=== PATIENT | male | born 1950 | race Caucasian/White ===

== ENCOUNTER 2017-05-01 10:14 | Emergency (ER) | payer OTHER, MEDICAID ==
[~2017-05-01] VITALS: Ht 162.6 cm; Wt 95.0 kg
[~2017-05-01 10:14] MED LIST: ASPI1TAB91 PO; BUME1TAB28 PO; FURO1TAB60 PO; LANTUS2P SQ; LIPI40TA PO; LISI-519 PO; METO25TA3 PO; PHEN1LIQ60 PO
[2017-05-01 10:17] VITALS: BP 118/84; PULSE 80; RESP 16; TEMP 98.2; O2SAT 94
[2017-05-01] MEDS ORDERED: BUME2TAB PO (10:28)
--- NOTE | 2017-05-01 10:51 | PD ---
HPI Chief Complaint: Pain: Acute or Chronic Time Seen by Provider: 10:45 Travel History International Travel<30 days: No Contact w/Intl Traveler<30days: No Traveled to known affect area: No History of Present Illness HPI 66 YO M with PMH of arrhythmia S/P defibrillator placement, CAD S/P CABG 3, DM , HTN presents to the ED for evaluation 24-hour history of right ankle pain. Onset upon awaking yesterday. Worsened by range of motion. Patient can identify no acute injury or overuse. He has been ambulatory on the ankle. He does endorse distant ankle sprain. No treatment attempted at home. He has never had a diabetic foot check. PFSH Past Medical History ADHD: Yes Cardiovascular Problems: Yes (PATIENT WITH DEFIBRILLATOR) High Cholesterol: Yes Diabetes: Yes Patient Takes Glucophage: No Hypertension: Yes Past Surgical History Abdominal Surgery: Yes (metal post puntured abdomen part of bowel removed) Coronary Artery Bypass Graft: Yes (x3 ) Coronary Stent: Yes Pacemaker: Yes Social History Alcohol Use: No Tobacco Use: No Substance Use: No Allergies-Medications (Allergen,Severity, Reaction): Coded Allergies: No Known Allergies (Unverified , 05/01/17) Reported Meds & Prescriptions Reported Meds & Active Scripts Active Tylenol (Acetaminophen) 325 Mg Tab 650 Mg PO Q6H 5 Days Lasix (Furosemide) 40 Mg Tab 40 Mg PO DAILY Reported Bumetanide 2 Mg Tab 2 Mg PO BID Lantus Inj (Insulin Glargine) 1,000 Unit/10 Ml Vial 10 Units SQ 2-3 TIMES A DAY Aspirin Adult Low Strength (Aspirin) 81 Mg Tabdr 81 Mg PO DAILY Metoprolol Tartrate 25 Mg Tab 25 Mg PO BID Lisinopril 5 Mg Tab 5 Mg PO DAILY Lipitor (Atorvastatin Calcium) 40 Mg Tab 40 Mg PO DAILY Review of Systems Except as stated in HPI: all other systems reviewed are Neg Physical Exam Narrative GENERAL: Well-nourished, well-developed male in no acute distress. SKIN: Focused skin assessment warm/dry. HEAD: Normocephalic. EYES: No scleral icterus. No injection or drainage. NECK: Supple, trachea midline. No JVD or lymphadenopathy. CARDIOVASCULAR: Regular rate and rhythm without murmurs, gallops, or rubs. RESPIRATORY: Breath sounds equal bilaterally. No accessory muscle use. GASTROINTESTINAL: Abdomen soft, non-tender, nondistended. MUSCULOSKELETAL: No cyanosis, or edema. Focused right lower extremity exam: Mild edema. No erythema or ecchymosis. 2+ DP pulse. Squeeze test negative. Tender to palpation of the bilateral malleolus. No base of the fifth or navicular tenderness. Pain elicited with flexion and extension of the ankle. Patient is able to wiggle the toes. Sensation intact to light touch distally. Cap refill less than 2 seconds. BACK: Nontender without obvious deformity. No CVA tenderness. Data Data Last Documented VS Vital Signs Date Time Temp Pulse Resp B/P Pulse Ox O2 Delivery O2 Flow Rate FiO2 05/01/17 10:17 98.2 80 16 118/84 94 Orders Ankle, Complete ([id number]) (05/01/17 10:40) ^ Nick Bandage (05/01/17 11:26) MDM Medical Decision Making Medical Screen Exam Complete: Yes Emergency Medical Condition: Yes Differential Diagnosis Osteoarthritis versus sprain versus fracture versus dislocation versus osteomyelitis versus diabetic foot pain versus other Narrative Course 66 YO M with PMH of arrhythmia S/P defibrillator placement, CAD S/P CABG 3, DM , HTN presents to the ED for evaluation 24-hour history of right ankle pain. Onset upon awaking yesterday. Worsened by range of motion. Patient can identify no acute injury or overuse. He has been ambulatory on the ankle. He' s never had a diabetic foot check. Vitals reviewed. Physical exam reveals mild edema and tenderness to the bilateral malleolus but is otherwise unremarkable. X-ray reveals no bony injury per radiology read. I suspect this is related to osteoarthritis. Patient was instructed to rest, ice, compress, elevate the extremity. He is provided a prescription for short course of Tylenol as NSAIDs are contraindicated due to many interactions with his current medications. 4 inch Nick wrap was applied in the ED. He is instructed to take the medication as prescribed, treat symptomatically, follow-up with the assessment coordinator for complete foot checked. He indicated understanding of instructions and is agreeable to a care plan. He is stable and discharged home. Diagnosis Primary Impression: Right ankle pain Qualified Code: M25.571 - Acute right ankle pain Referrals: Associate [employer] Integrity [employer] Patient Instructions: Ankle Exercises (GEN), General Instructions, Osteoarthritis (ED) Additional Instructions: Rest, ice, elevate the extremity. Apply ice no longer than 10-15 minutes per hour a few times a day. Tylenol up to 4 x's a day to reduce pain and swelling Return to normal, gentle activity as tolerated. No running, jumping activities for the next few weeks. Follow up with assessment coordinator or the primary care provider. Return to the ED for any urgent or emergent medical condition. Med/Other Pt SpecificInfo: Prescription(s) given Scripts Acetaminophen (Tylenol)325 Mg [id number] Mg PO Q6H 5 Days Ref 0 Prov:Gwendolyn Reyes MD 05/01/17 Disposition: 01 DISCHARGE HOME Condition: Stable Darlyn Serrato May 01, 2017 10:51
--- NOTE | 2017-05-01 11:24 | RADRPT ---
EXAM DATE/TIME: 05/01/2017 11:05 [facility] COMPARISON: No previous studies available for comparison. INDICATIONS : Right ankle pain. No known injury. MEDICAL HISTORY : None. SURGICAL HISTORY : None. ENCOUNTER: Initial ACUITY: 1 day PAIN SCORE: 10/10 LOCATION: Right medial ankle FINDINGS: Moderate soft tissue swelling is seen over both the medial and lateral malleolus. Alignment is anato italo. Fracture is not appreciated. CONCLUSION: Soft tissue swelling without fracture. Celio Aragon MD FACR on May 01, 2017 at 11:21 Board Certified Radiologist. This report was verified electronically.
[2017-05-01] MEDS ORDERED: TYLE325T PO (11:25)
== END 2017-05-01 11:44 | disposition home or self-care (01) ==
LOC: NEPD 10:14
DX: M25.571 Pain in right ankle and joints of right foot (principal); I49.9 Cardiac arrhythmia, unspecified; I25.10 Atherosclerotic heart disease of native coronary artery without angina pectoris; E11.9 Type 2 diabetes mellitus without complications; I10 Essential (primary) hypertension; E78.00 Pure hypercholesterolemia, unspecified; Z79.4 Long term (current) use of insulin; Z79.899 Other long term (current) drug therapy; Z79.82 Long term (current) use of aspirin
CPT/HCPCS: 73610; 99283

== ENCOUNTER 2017-05-16 09:40 | Emergency (ER) | payer OTHER, MEDICAID ==
[~2017-05-16] VITALS: Ht 162.6 cm; Wt 95.5 kg
[~2017-05-16 09:40] MED LIST changes: -BUME1TAB28 PO; +BUME2TAB PO; -PHEN1LIQ60 PO; +TYLE325T PO
[2017-05-16 09:43] VITALS: BP 146/77; PULSE 65; RESP 24; TEMP 97.8; O2SAT 98
--- NOTE | 2017-05-16 10:27 | PD ---
HPI Chief Complaint: Abdominal Pain Time Seen by Provider: 10:24 Travel History International Travel<30 days: No Contact w/Intl Traveler<30days: No Traveled to known affect area: No History of Present Illness HPI 66-year-old male with history of diabetes, hypertension, CAD status post CABG, previous intestinal surgery secondary to an accident, presents to the ER today because of one day history of abdominal pain and nausea with one episode of vomiting. He states his symptoms started at 4 AM. He denies any diarrhea, fevers, or any other symptoms. He currently states his pain is a 10 out of 10. He does not know any exacerbating or alleviating factors. Modifying Factors: None Associated Signs & Symptoms: Abdominal pain, nausea and vomiting Risk Factors: None PFSH Past Medical History Hx Anticoagulant Therapy: No ADHD: Yes Cardiovascular Problems: Yes (pacer) High Cholesterol: Yes Chemotherapy: No Cerebrovascular Accident: No Diabetes: Yes Patient Takes Glucophage: No Hypertension: Yes Respiratory: No Past Surgical History Abdominal Surgery: Yes (metal post puntured abdomen part of bowel removed) Coronary Artery Bypass Graft: Yes (x3 ) Coronary Stent: Yes Pacemaker: Yes Social History Alcohol Use: No Tobacco Use: No Substance Use: No Allergies-Medications (Allergen,Severity, Reaction): Coded Allergies: No Known Allergies (Unverified , 05/01/17) Reported Meds & Prescriptions Reported Meds & Active Scripts Active Tylenol (Acetaminophen) 325 Mg Tab 650 Mg PO Q6H 5 Days Lasix (Furosemide) 40 Mg Tab 40 Mg PO DAILY Reported Bumetanide 2 Mg Tab 2 Mg PO BID Lantus Inj (Insulin Glargine) 1,000 Unit/10 Ml Vial 10 Units SQ 2-3 TIMES A DAY Aspirin Adult Low Strength (Aspirin) 81 Mg Tabdr 81 Mg PO DAILY Metoprolol Tartrate 25 Mg Tab 25 Mg PO BID Lisinopril 5 Mg Tab 5 Mg PO DAILY Lipitor (Atorvastatin Calcium) 40 Mg Tab 40 Mg PO DAILY Review of Systems Except as stated in HPI: all other systems reviewed are Neg Physical Exam Narrative GENERAL: Well-developed elderly male patient currently mild distress. Awake and oriented 3. SKIN: Focused skin assessment warm/dry. HEAD: Atraumatic. Normocephalic. EYES: Pupils equal and round. No scleral icterus. No injection or drainage. ENT: No nasal bleeding or discharge. Mucous membranes pink and moist. NECK: Trachea midline. No JVD. CARDIOVASCULAR: Regular rate and rhythm. No murmur appreciated. RESPIRATORY: No accessory muscle use. Clear to auscultation. Breath sounds equal bilaterally. GASTROINTESTINAL: Abdomen soft, mid abdominal tenderness without guarding or rebound, nondistended. Hepatic and splenic margins not palpable. MUSCULOSKELETAL: No obvious deformities. No clubbing. No cyanosis. No edema. NEUROLOGICAL: Awake and alert. No obvious cranial nerve deficits. Motor grossly within normal limits. Normal speech. PSYCHIATRIC: Appropriate mood and affect; insight and judgment normal. Data Data Last Documented VS Vital Signs Date Time Temp Pulse Resp B/P Pulse Ox O2 Delivery O2 Flow Rate FiO2 05/16/17 10:43 21 95 Nasal Cannula 2 05/16/17 09:43 97.8 65 146/77 Orders Complete Blood Count With Diff (05/16/17 10:19) Comprehensive Metabolic Panel (05/16/17 10:19) Lipase (05/16/17 10:19) Urinalysis - C+S If Indicated (05/16/17 10:19) Iv Access Insert/Monitor (05/16/17 10:19) Ecg Monitoring (05/16/17 10:19) Oximetry (05/16/17 10:19) Ondansetron Inj (Zofran Inj) (05/16/17 10:30) Sodium Chloride 0.9% Flush (Ns Flush) (05/16/17 10:30) Electrocardiogram (05/16/17 10:19) Hydromorphone Pf Inj (Dilaudid Pf Inj) (05/16/17 10:30) Ct Abd/Pel W Iv Contrast(Rout) (05/16/17 10:24) Iohexol 350 Inj (Omnipaque 350 Inj) (05/16/17 12:46) Labs Laboratory Tests Test 05/16/17 10:30 White Blood Count 13.2 TH/MM3 Red Blood Count 5.85 MIL/MM3 Hemoglobin 16.4 GM/DL Hematocrit 50.0 % Mean Corpuscular Volume 85.5 FL Mean Corpuscular Hemoglobin 28.0 PG Mean Corpuscular Hemoglobin 32.8 % Concent Red Cell Distribution Width 14.3 % Platelet Count 165 TH/MM3 Mean Platelet Volume 10.6 FL Neutrophils (%) (Auto) 88.2 % Lymphocytes (%) (Auto) 8.4 % Monocytes (%) (Auto) 3.0 % Eosinophils (%) (Auto) 0.1 % Basophils (%) (Auto) 0.3 % Neutrophils # (Auto) 11.6 TH/MM3 Lymphocytes # (Auto) 1.1 TH/MM3 Monocytes # (Auto) 0.4 TH/MM3 Eosinophils # (Auto) 0.0 TH/MM3 Basophils # (Auto) 0.0 TH/MM3 CBC Comment DIFF FINAL Differential Comment Sodium Level 131 MEQ/L Potassium Level 4.3 MEQ/L Chloride Level 95 MEQ/L Carbon Dioxide Level 28.6 MEQ/L Anion Gap 7 MEQ/L Blood Urea Nitrogen 23 MG/DL Creatinine 1.40 MG/DL Estimat Glomerular Filtration 51 ML/MIN Rate Random Glucose 169 MG/DL Calcium Level 10.1 MG/DL Total Bilirubin 0.6 MG/DL Aspartate Amino Transf 23 U/L (AST/SGOT) Alanine Aminotransferase 29 U/L (ALT/SGPT) Alkaline Phosphatase 88 U/L Total Protein 9.4 GM/DL Albumin 4.6 GM/DL Lipase 174 U/L [facility] Medical Decision Making Medical Screen Exam Complete: Yes Emergency Medical Condition: Yes Medical Record Reviewed: Yes Interpretation(s) Laboratory Tests Test 05/16/17 10:30 White Blood Count 13.2 TH/MM3 (4.0-11.0) Neutrophils (%) (Auto) 88.2 % (16.0-70.0) Lymphocytes (%) (Auto) 8.4 % (9.0-44.0) Neutrophils # (Auto) 11.6 TH/MM3 (1.8-7.7) Sodium Level 131 MEQ/L (136-145) Chloride Level 95 MEQ/L (98-107) Blood Urea Nitrogen 23 MG/DL (7-18) Creatinine 1.40 MG/DL (0.60-1.30) Estimat Glomerular Filtration 51 ML/MIN (>89) Rate Random Glucose 169 MG/DL (74-106) Total Protein 9.4 GM/DL (6.4-8.2) Last 24 hours Impressions Abdomen/Pelvis CT 05/16/17 1024 Signed Impressions: Service Date/Time: Tuesday, May 16, 2017 12:29 - CONCLUSION: Fluid-filled small bowel with air-fluid levels which may or present a mild ileus or enteritis. Increased fat content in the liver. Cardiomegaly No other significant abnormality. Altaf Liao MD Differential Diagnosis Abdominal pain, nausea and vomitinggastroenteritis versus gastritis versus obstruction versus other acute intra-abdominal process Narrative Course Lab work shows leukocytosis and CAT scan was ordered for further evaluation. It shows some signs of mild ileus and enteritis but was otherwise unremarkable. Patient was given IV nausea medication in the ER and on reevaluation at 1:20 PM, he is feeling much improved and has had no further vomiting in the ER. At this point, abdomen is fairly soft and nontender, and I do not think that he has an acute abdomen and this case. My plan would be to release him with symptomatic relief or nausea and vomiting and have him follow-up with primary care physician. He should return for any worsening in symptoms as necessary. The plan has been discussed with him and he states understanding. Diagnosis Primary Impression: Enteritis Med/Other Pt SpecificInfo: Prescription(s) given Scripts Dicyclomine (Bentyl)10 Mg Cap10 Mg PO TID PRN (Bowel Management) #15 CAP Ref 0 Prov:Catherine Osuna MD 05/16/17 Ondansetron Odt (Zofran Odt)4 Mg Tab4 Mg SL Q6HR PRN (Nausea/Vomiting) #7 TAB Ref 0 Prov:Catherine Osuna MD 05/16/17 Disposition: 01 DISCHARGE HOME Condition: Stable Catherine Osuna MD May 16, 2017 10:27
[2017-05-16] MEDS ORDERED: SODIUM CHLORIDE 0.9% FLUSH 10 ML FLUSH IV FLUSH PRN (10:30)
[2017-05-16] MEDS ORDERED: HYDROmorphone HCL PF 1 MG/ML VIAL IV PUSH ONE (10:30)
[2017-05-16] MEDS ORDERED: ONDANSETRON HCL 4 MG/2 ML VIAL IVP ONE (10:30)
[2017-05-16 10:41] VITALS: RESP 19; O2SAT 95
[2017-05-16 10:43] VITALS: RESP 21; O2SAT 95
[2017-05-16 11:09] LABS: AUTOMATED NEUTROPHIL # 11.6 TH/MM3 (1.8-7.7); BASOPHIL % 0.3 % (0.0-2.0); EOSINOPHIL % 0.1 % (0.0-4.0); HEMO FLAGS DIFF FINAL; LYMPH % 8.4 % (9.0-44.0); LYMPHOCYTE # 1.1 TH/MM3 (1.0-4.8); MEAN CELL VOLUME 85.5 FL (80.0-100.0); MEAN CORPUSCULAR HGB CONC 32.8 % (32.0-36.0); NEUT % 88.2 % (16.0-70.0); PLATELET COUNT 165 TH/MM3 (150-450); RED BLOOD COUNT 5.85 MIL/MM3 (4.50-5.90); RED CELL DISTRIBUTION WIDTH 14.3 % (11.6-17.2); WHITE BLOOD COUNT 13.2 TH/MM3 (4.0-11.0)
[2017-05-16 11:29] LABS: ANION GAP 7 MEQ/L (5-15); BICARBONATE 28.6 MEQ/L (21.0-32.0); BLOOD UREA NITROGEN 23 MG/DL (7-18); CHLORIDE 95 MEQ/L (98-107); GLOMERULAR FILTRATION RATE 51 ML/MIN (>89); POTASSIUM 4.3 MEQ/L (3.5-5.1); SODIUM (NA) 131 MEQ/L (136-145)
[2017-05-16 11:31] LABS: ALT (GPT) 29 U/L (12-78); AST (GOT) 23 U/L (15-37)
[2017-05-16 11:33] LABS: ALKALINE PHOSPHATASE 88 U/L (45-117); TOTAL BILIRUBIN ADULT 0.6 MG/DL (0.2-1.0)
[2017-05-16] MEDS ORDERED: IOHEXOL 350 MG/ML 10 ML VIAL (for RAD DIAG) IV ONE (12:46)
--- NOTE | 2017-05-16 13:11 | RADRPT ---
EXAM DATE/TIME: 05/16/2017 12:29 [facility] COMPARISON: No previous studies available for comparison. INDICATIONS : Abdominal pain, nausea, vomiting, constipation. IV CONTRAST: 97 cc Omnipaque 350 (iohexol) IV ORAL CONTRAST: No oral contrast ingested. RADIATION DOSE: 16.54 CTDIvol (mGy) MEDICAL HISTORY : Cardiovascular disease. Diabetes mellitus type 2. Hypertension. SURGICAL HISTORY : CABG ENCOUNTER: Initial ACUITY: 1 day PAIN SCALE: 4/10 LOCATION: Bilateral lower quadrant TECHNIQUE: Volumetric scanning of the abdomen and pelvis was performed. Using automated exposure control and ad justment of the mA and/or kV according to patient size, radiation dose was kept as low as reasonably achievable to obtain optimal diagnostic quality images. DICOM format image data is available electro nically for review and comparison. FINDINGS: LOWER LUNGS: The visualized lower lungs are clear. The heart is moderately enlarged. AICD device is noted in place . LIVER: Liver is diffusely hypodense. There no focal lesions or evidence of biliary duct dilatation. No calci fied gallstones. SPLEEN: Normal size without lesion. PANCREAS: Within normal limits. KIDNEYS: Normal in size and shape. There is no mass, stone or hydronephrosis. 12 mm cyst is identified in the upper pole of the left kidney. ADRENAL GLANDS: Within normal limits. VASCULAR: There is no aortic aneurysm. BOWEL/MESENTERY: Increased fluid accumulation with air-fluid levels are seen throughout the small intestinal tract. Th ere is no evidence of pathologic distention. Stool and air present in the colon which is not distende d. There are no extraintestinal fluid collections or evidence of free air. ABDOMINAL WALL: Within normal limits. RETROPERITONEUM: There is no lymphadenopathy. BLADDER: No wall thickening or mass. REPRODUCTIVE: Within normal limits. INGUINAL: There is no lymphadenopathy or hernia. MUSCULOSKELETAL: Within normal limits for patient age. CONCLUSION: Fluid-filled small bowel with air-fluid levels which may or present a mild ileus or enteritis. Increased fat content in the liver. Cardiomegaly No other significant abnormality. Altaf Liao MD on May 16, 2017 at 12:55 Board Certified Radiologist. This report was verified electronically.
[2017-05-16] MEDS ORDERED: DICY10 PO (13:22)
[2017-05-16] MEDS ORDERED: ZOFR4TAB3 SL (13:22)
--- NOTE | 2017-05-17 12:30 | EKG ---
Date Performed: 05/16/2017 Time Performed: 10:27:21 PTAGE: 66 years EKG: ELECTRONIC VENTRICULAR PACEMAKER Compared to prior tracing no significant change ABNORMAL R HYTHM ECG PREVIOUS TRACING : 10/23/2016 14.03 DOCTOR: Nahum Avila Interpretating Date/Time 05/17/2017 12:28:40
== END 2017-05-16 13:58 | disposition home or self-care (01) ==
LOC: NEPC 09:40
DX: K52.9 Noninfective gastroenteritis and colitis, unspecified (principal); E11.9 Type 2 diabetes mellitus without complications; I10 Essential (primary) hypertension; Z79.4 Long term (current) use of insulin; Z79.82 Long term (current) use of aspirin
CPT/HCPCS: 74177; 80053; 83690; 85025; 93005; 96374; 96375; 99285; J1170; J2405; Q9967

== ENCOUNTER 2017-12-18 18:48 | Inpatient (IN) | payer OTHER, MEDICAID, MEDICARE ==
[2017-12-18] VITALS (7 sets, daily range): BP systolic 92–125; BP diastolic 50–71; PULSE 69–149; RESP 16–18; TEMP 97.7–98; O2SAT 95–98
[~2017-12-18] VITALS: Ht 160 cm; Wt 93.7 kg
[~2017-12-18 18:48] MED LIST changes: -ASPI1TAB91 PO; +ASPI81TA16 PO; +DICY10 PO; +ZOFR4TAB3 SL
[2017-12-18] MEDS ORDERED: SODIUM CHLORIDE 0.9% FLUSH 10 ML FLUSH IVF PRN (19:45)
[2017-12-18] MEDS ORDERED: DILTIAZEM HCL 25 MG/5 ML VIAL IV ONE (19:45)
--- NOTE | 2017-12-18 19:47 | PD ---
HPI Chief Complaint: Chest Pain Time Seen by Provider: 19:28 Travel History International Travel<30 days: No Contact w/Intl Traveler<30days: No Traveled to known affect area: No History of Present Illness HPI Patient is a 67-year-old male presenting to the emergency department for evaluation of chest pain. Patient states this started approximately 5 PM this evening. He reports increased heart rate and his blood pressure was high at home. He states his blood pressure is 150/100. He reports the chest pain is on his left anterior chest wall, there is no radiation. He reports mild shortness of breath and cold sweats. He reports his pain as a 5 out of 10, symptom severity is moderate, onset was sudden. There are no alleviating factors, there are no exacerbating factors. Patient denies any recent illness, no fevers, abdominal pain, shortness of breath, back pain, headache. Past medical history significant for hypertension, type 2 diabetes, triple coronary artery bypass graft, pacemaker. PFSH Past Medical History ADHD: Yes Heart Rhythm Problems: Yes High Cholesterol: Yes Diabetes: Yes Hypertension: Yes Immunizations Current: Yes Past Surgical History Abdominal Surgery: Yes (metal post puntured abdomen part of bowel removed) Coronary Artery Bypass Graft: Yes (x3 ) Coronary Stent: Yes Pacemaker: Yes Social History Alcohol Use: No Tobacco Use: No Substance Use: No Allergies-Medications (Allergen,Severity, Reaction): Coded Allergies: No Known Allergies (Unverified Allergy, Unknown, 12/18/17) Reported Meds & Prescriptions Reported Meds & Active Scripts Active Bentyl (Dicyclomine HCl) 10 Mg Cap 10 Mg PO TID PRN Zofran Odt (Ondansetron Odt) 4 Mg Tab 4 Mg SL Q6HR PRN Tylenol (Acetaminophen) 325 Mg Tab 650 Mg PO Q6H 5 Days Lasix (Furosemide) 40 Mg Tab 40 Mg PO DAILY Reported Bumetanide 2 Mg Tab 2 Mg PO BID Lantus Inj (Insulin Glargine) 1,000 Unit/10 Ml Vial 10 Units SQ 2-3 TIMES A DAY Aspirin Adult Low Strength (Aspirin) 81 Mg Tabdr 81 Mg PO DAILY Metoprolol Tartrate 25 Mg Tab 25 Mg PO BID Lisinopril 5 Mg Tab 5 Mg PO DAILY Lipitor (Atorvastatin Calcium) 40 Mg Tab 40 Mg PO DAILY Review of Systems Except as stated in HPI: all other systems reviewed are Neg General / Constitutional: No: Fever HENT: No: Headaches, Lightheadedness Cardiovascular: Positive: Chest Pain or Discomfort, Tachycardia Respiratory: Positive: Shortness of Breath (mild), No: Cough, Wheezing Gastrointestinal: No: Nausea, Abdominal Pain Musculoskeletal: No: Myalgias Neurologic: No: Weakness, Dizziness, Syncope, Focal Abnormalities Physical Exam Narrative GENERAL: Overweight, well-developed, alert male. Presenting in no acute distress. SKIN: Warm and dry. HEAD: Atraumatic. Normocephalic. EYES: Pupils equal and round. No scleral icterus. No injection or drainage. ENT: No nasal bleeding or discharge. Mucous membranes pink and moist. NECK: Trachea midline. No JVD. CARDIOVASCULAR: Tachycardic. RESPIRATORY: No accessory muscle use. Clear to auscultation. Breath sounds equal bilaterally. GASTROINTESTINAL: Abdomen soft, non-tender, nondistended. Hepatic and splenic margins not palpable. MUSCULOSKELETAL: Extremities without clubbing, cyanosis, or edema. No obvious deformities. NEUROLOGICAL: Awake and alert. No obvious cranial nerve deficits. Motor grossly within normal limits. Five out of 5 muscle strength in the arms and legs. Normal speech. PSYCHIATRIC: Appropriate mood and affect; insight and judgment normal. Data Data Last Documented VS Vital Signs Date Time Temp Pulse Resp B/P (MAP) Pulse Ox O2 Delivery O2 Flow Rate FiO2 12/18/17 19:50 98 Room Air 12/18/17 19:50 18 12/18/17 19:36 149 12/18/17 18:51 98.0 Orders Orders Electrocardiogram (12/18/17 19:37) B-Type Natriuretic Peptide (12/18/17 19:37) Ckmb (Isoenzyme) Profile (12/18/17 19:37) Complete Blood Count With Diff (12/18/17 19:37) Comprehensive Metabolic Panel (12/18/17 19:37) Magnesium (Mg) (12/18/17 19:37) Prothrombin Time / Inr (Pt) (12/18/17 19:37) Act Partial Throm Time (Ptt) (12/18/17 19:37) Troponin I (12/18/17 19:37) Lipase (12/18/17 19:37) Chest, Single Ap (12/18/17 19:37) Ecg Monitoring (12/18/17 19:37) Bilateral Bp Monitoring (12/18/17 19:37) Iv Access Insert/Monitor (12/18/17 19:37) Oximetry (12/18/17 19:37) Oxygen Administration (12/18/17 19:37) Sodium Chloride 0.9% Flush (Ns Flush) (12/18/17 19:45) Ct Pulmonary Angiogram (12/18/17 19:37) Diltiazem Inj (Cardizem Inj) (12/18/17 19:45) CKMB (12/18/17 19:45) CKMB% (12/18/17 19:45) Aspirin Chew (Aspirin Chew) (12/18/17 21:00) Nitroglycerin 2% Oint (Nitroglycerin 2% (12/18/17 21:00) Heparin Inj (Heparin Inj) (12/18/17 21:00) Heparin Inj (Heparin Inj) (12/19/17 03:00) Heparin Inj (Heparin Inj) (12/19/17 03:00) Heparin-D5w 25,000 U/250 Ml (Heparin-D5w (12/18/17 21:00) Cbc No Diff, Includes Plts (12/21/17 06:00) Act Partial Throm Time (Ptt) (12/19/17 03:50) Electrocardiogram (12/18/17 ) Admit Order (Ed Use Only) (12/18/17 21:38) Labs Laboratory Tests Test 12/18/17 19:45 White Blood Count 9.4 TH/MM3 Red Blood Count 5.58 MIL/MM3 Hemoglobin 15.9 GM/DL Hematocrit 47.4 % Mean Corpuscular Volume 85.0 FL Mean Corpuscular Hemoglobin 28.5 PG Mean Corpuscular Hemoglobin Concent 33.6 % Red Cell Distribution Width 14.4 % Platelet Count 170 TH/MM3 Mean Platelet Volume 9.1 FL Neutrophils (%) (Auto) 73.3 % Lymphocytes (%) (Auto) 17.0 % Monocytes (%) (Auto) 8.1 % Eosinophils (%) (Auto) 1.0 % Basophils (%) (Auto) 0.6 % Neutrophils # (Auto) 6.9 TH/MM3 Lymphocytes # (Auto) 1.6 TH/MM3 Monocytes # (Auto) 0.8 TH/MM3 Eosinophils # (Auto) 0.1 TH/MM3 Basophils # (Auto) 0.1 TH/MM3 CBC Comment DIFF FINAL Differential Comment Prothrombin Time 10.0 SEC Prothromb Time International Ratio 1.0 RATIO Activated Partial Thromboplast Time 24.7 SEC Blood Urea Nitrogen 22 MG/DL Creatinine 1.31 MG/DL Random Glucose 162 MG/DL Total Protein 8.2 GM/DL Albumin 3.7 GM/DL Calcium Level 8.9 MG/DL Magnesium Level 2.7 MG/DL Alkaline Phosphatase 77 U/L Aspartate Amino Transf (AST/SGOT) 30 U/L Alanine Aminotransferase (ALT/SGPT) 22 U/L Total Bilirubin 0.4 MG/DL Sodium Level 133 MEQ/L Potassium Level 4.4 MEQ/L Chloride Level 97 MEQ/L Carbon Dioxide Level 26.6 MEQ/L Anion Gap 9 MEQ/L Estimat Glomerular Filtration Rate 55 ML/MIN Total Creatine Kinase 223 U/L Creatine Kinase MB 3.7 NG/ML Troponin I 0.66 NG/ML B-Type Natriuretic Peptide 227 PG/ML Lipase 253 U/L MDM Medical Decision Making Medical Screen Exam Complete: Yes Emergency Medical Condition: Yes Medical Record Reviewed: Yes Interpretation(s) Vital Signs Date Time Temp Pulse Resp B/P (MAP) Pulse Ox O2 Delivery O2 Flow Rate FiO2 12/18/17 19:50 98 Room Air 12/18/17 19:50 18 98 Room Air 12/18/17 19:36 149 18 119/62 (81) 97 Room Air 12/18/17 18:51 98.0 72 16 125/71 (89) 95 Room Air Vital Signs Date Time Temp Pulse Resp B/P (MAP) Pulse Ox O2 Delivery O2 Flow Rate FiO2 12/18/17 19:36 149 18 119/62 (81) 97 Room Air 12/18/17 18:51 98.0 72 16 125/71 (89) 95 Room Air Last Impressions Chest X-Ray 12/18/17 193 Signed Impressions: Service Date/Time: Monday, December 18, 2017 19:56 - CONCLUSION: 1. Compensated cardiomegaly. 2. Minimal left perihilar atelectasis/scarring. Lungs are otherwise clear Skyler Wetzel MD Laboratory Tests Test 12/18/17 19:45 White Blood Count 9.4 TH/MM3 Red Blood Count 5.58 MIL/MM3 Hemoglobin 15.9 GM/DL Hematocrit 47.4 % Mean Corpuscular Volume 85.0 FL Mean Corpuscular Hemoglobin 28.5 PG Mean Corpuscular Hemoglobin Concent 33.6 % Red Cell Distribution Width 14.4 % Platelet Count 170 TH/MM3 Mean Platelet Volume 9.1 FL Neutrophils (%) (Auto) 73.3 % Lymphocytes (%) (Auto) 17.0 % Monocytes (%) (Auto) 8.1 % Eosinophils (%) (Auto) 1.0 % Basophils (%) (Auto) 0.6 % Neutrophils # (Auto) 6.9 TH/MM3 Lymphocytes # (Auto) 1.6 TH/MM3 Monocytes # (Auto) 0.8 TH/MM3 Eosinophils # (Auto) 0.1 TH/MM3 Basophils # (Auto) 0.1 TH/MM3 CBC Comment DIFF FINAL Differential Comment Prothrombin Time 10.0 SEC Prothromb Time International Ratio 1.0 RATIO Activated Partial Thromboplast Time 24.7 SEC Blood Urea Nitrogen 22 MG/DL Creatinine 1.31 MG/DL Random Glucose 162 MG/DL Total Protein 8.2 GM/DL Albumin 3.7 GM/DL Calcium Level 8.9 MG/DL Magnesium Level 2.7 MG/DL Alkaline Phosphatase 77 U/L Aspartate Amino Transf (AST/SGOT) 30 U/L Alanine Aminotransferase (ALT/SGPT) 22 U/L Total Bilirubin 0.4 MG/DL Sodium Level 133 MEQ/L Potassium Level 4.4 MEQ/L Chloride Level 97 MEQ/L Carbon Dioxide Level 26.6 MEQ/L Anion Gap 9 MEQ/L Estimat Glomerular Filtration Rate 55 ML/MIN Total Creatine Kinase 223 U/L Troponin I 0.66 NG/ML Lipase 253 U/L Differential Diagnosis ACS versus nstemi versus pulmonary embolism versus metabolic abnormality versus other Narrative Course Patient is a 67-year-old male presenting for evaluation of chest pain. Patient is tachycardic on arrival, he is in no acute distress. IV access established, patient placed on telemetry monitoring continuous pulse oximetry. Initial EKG shows uncertain a regular rhythm with a ventricular rate of 139. Diltiazem 15 mg IV 1 dose ordered. Patient was reassessed, heart rate is in the 80s and he reports feeling much better. Troponin resulted 0.66, aspirin, nitro paste, heparin drip ordered. Chest x-ray shows a density cardiomegaly, minimal left perihilar atelectasis/ scarring, lungs are otherwise clear. CT pulmonary angiogram is negative for pulmonary embolus. Severe coronary calcification status post CABG. CBC is unremarkable Coags are unremarkable Chemistry with BUN and creatinine 22/1.31, magnesium 2.7, BNP 227 Patient will be admitted for NSTEMI. Discussed findings with my attending physician, patient was admitted to the residents under Dr. Sims. Admit orders placed. Patient and spouse were advised on all findings as well as plan of care. Patient is agreeable to stay. He is resting comfortably, he has no complaints of chest pain at this time. His vital signs remain stable. Diagnosis Primary Impression: NSTEMI (non-ST elevated myocardial infarction) Additional Impressions: Elevated brain natriuretic peptide (BNP) level Tachyarrhythmia Admitting Information Admitting Physician Requests: Admit Marybel Leyva Dec 18, 2017 19:47
--- NOTE | 2017-12-18 20:08 | RADRPT ---
EXAM DATE/TIME: 12/18/2017 19:56 [facility] COMPARISON: CHEST SINGLE AP, October 23, 2016, 14:12. INDICATIONS : Chest pain. MEDICAL HISTORY : Cardiovascular disease. Diabetes mellitus type 2. Hypertension. SURGICAL HISTORY : CABG. ENCOUNTER: Initial ACUITY: 1 day PAIN SCORE: 5/10 LOCATION: Bilateral chest FINDINGS: A single view of the chest demonstrates the lungs to be symmetrically aerated without evidence of mas s, infiltrate or effusion. Minimal left perihilar atelectatic changes. Heart size is prominent but ap pears to be well compensated. Left subclavian bipolar pacer/defibrillator is radiographically intact. Intact median sternotomy wires and surgical clips the medial aspect of the left upper hemithorax may represent a JOYA-type graft. CONCLUSION: 1. Compensated cardiomegaly. 2. Minimal left perihilar atelectasis/scarring. Lungs are otherwise clear Skyler Wetzel MD on December 18, 2017 at 20:05 Board Certified Radiologist. This report was verified electronically.
[2017-12-18 20:13] LABS: AUTOMATED NEUTROPHIL # 6.9 TH/MM3 (1.8-7.7); BASOPHIL # 0.1 TH/MM3 (0-0.2); BASOPHIL % 0.6 % (0.0-2.0); EOSINOPHIL # 0.1 TH/MM3 (0-0.4); HEMATOCRIT 47.4 % (39.0-51.0); HEMOGLOBIN 15.9 GM/DL (13.0-17.0); LYMPHOCYTE # 1.6 TH/MM3 (1.0-4.8); MEAN CORPUSCULAR HEMOGLOBIN 28.5 PG (27.0-34.0); MEAN CORPUSCULAR HGB CONC 33.6 % (32.0-36.0); MEAN PLATELET VOLUME 9.1 FL (7.0-11.0); MONO % 8.1 % (0.0-8.0); MONOCYTE # 0.8 TH/MM3 (0-0.9); NEUT % 73.3 % (16.0-70.0); PLATELET COUNT 170 TH/MM3 (150-450); RED BLOOD COUNT 5.58 MIL/MM3 (4.50-5.90); RED CELL DISTRIBUTION WIDTH 14.4 % (11.6-17.2); WHITE BLOOD COUNT 9.4 TH/MM3 (4.0-11.0)
[2017-12-18 20:34] LABS: ALBUMIN 3.7 GM/DL (3.4-5.0); AST (GOT) 30 U/L (15-37); BICARBONATE 26.6 MEQ/L (21.0-32.0); BLOOD UREA NITROGEN 22 MG/DL (7-18); CALCIUM 8.9 MG/DL (8.5-10.1); CHLORIDE 97 MEQ/L (98-107); CREATININE 1.31 MG/DL (0.60-1.30); GLOMERULAR FILTRATION RATE 55 ML/MIN (>89); GLUCOSE,RANDOM 162 MG/DL (74-106); MAGNESIUM 2.7 MG/DL (1.5-2.5); SODIUM (NA) 133 MEQ/L (136-145)
[2017-12-18 20:44] LABS: ALKALINE PHOSPHATASE 77 U/L (45-117); ALT (GPT) 22 U/L (12-78); TOTAL BILIRUBIN ADULT 0.4 MG/DL (0.2-1.0); TOTAL PROTEIN 8.2 GM/DL (6.4-8.2)
[2017-12-18 20:48] LABS: TROPONIN I 0.66 NG/ML (0.02-0.05)
[2017-12-18] MEDS ORDERED: TEMAZEPAM 15 MG CAP PO PRN (21:00)
[2017-12-18] MEDS ORDERED: NITROGLYCERIN 2% OINT 1 GM PACKET TOPICAL ONE (21:00)
[2017-12-18] MEDS ORDERED: HEPARIN SODIUM - IV 10,000 UNITS/10 ML VIAL IV ONE (21:00)
[2017-12-18] MEDS ORDERED: ASPIRIN 81 MG CHEW TAB CHEW ONE (21:00)
[2017-12-18] MEDS: HEPARIN-D5W 25,000 U/250 ML 250 ML IV PRN (21:40)
[2017-12-18] MEDS ORDERED: IOHEXOL 350 MG/ML 10 ML VIAL (for RAD DIAG) IVCONTRAST ONE (22:00)
--- NOTE | 2017-12-18 22:00 | HHI.HP ---
HPI Service Family Medicine Primary Care Physician Unknown Admission Diagnosis NSTEMI Diagnoses: International Travel<30 Days: No Contact w/Intl Traveler<30days: No Known Affected Area: No History of Present Illness 67 y/o M, hx of triple bypass and packemaker placement, DM, CKD, and HTN came in after episode of chest pain and saw that his HR was 126 and BP 150/105 at home. He also had some sweating at this time. The chest pain was over the left side of his chest and persisted for about 2 hours until he got medicine in the ED. He took his metoprolol and lisinopril at home which helped his HR and BP to come down, but he continue to have the chest pain. He denies any N/V during this time. He denies palpitations Pt denies any CP with activity recently. Right now he has no pain at all. He says he has chills in his feet. He had similar chest pain 5 years ago, but it was stronger. This led to his open heart surgery. He sees a grout machine operator, of [facility]. He saw him last 6 months ago, and there were no problems. No medications were changed at that time. Review of Systems Constitutional: DENIES: Fever, Weight gain Endocrine: DENIES: Polyuria, Polyphagia Eyes: DENIES: Diplopia, Eye inflammation Ears, nose, mouth, throat: DENIES: Nasal discharge, Oral lesions Respiratory: DENIES: Sputum production, Shortness of breath Cardiovascular: DENIES: Palpitations, Syncope Gastrointestinal: DENIES: Bloody stools, Constipation Genitourinary: DENIES: Urgency, Hematuria Musculoskeletal: DENIES: Stiffness, Joint Swelling Integumentary: DENIES: Pruritus Neurologic: DENIES: Headache, Localized weakness Psychiatric: DENIES: Hallucinations, Agitation Past Family Social History Past Medical History DM HTN CKD (per chart review) ACS w/ triple bipass open heart surgery w/ pacemaker placement in 2011 Past Surgical History triple bypass Abdominal surgery after fall when young Allergies: Coded Allergies: No Known Allergies (Unverified Allergy, Unknown, 12/18/17) Family History 10 brothers - accidents, crime, alcoholism Social History the couple is but they live in their own apartments, retired no smoker, no alcohol, no drugs Physical Exam Vital Signs Vital Signs Date Time Temp Pulse Resp B/P (MAP) Pulse Ox O2 Delivery O2 Flow Rate FiO2 12/18/17 19:50 98 Room Air 12/18/17 19:50 18 98 Room Air 12/18/17 19:36 149 18 119/62 (81) 97 Room Air 12/18/17 18:51 98.0 72 16 125/71 (89) 95 Room Air Physical Exam GENERAL: This is a well-nourished, well-developed patient, in no apparent distress. SKIN: No rashes, ecchymoses or lesions. Cool and dry. HEAD: Atraumatic. Normocephalic. No temporal or scalp tenderness. EYES: Pupils equal round and reactive. Extraocular motions intact. No scleral icterus. No injection or drainage. ENT: Nose without bleeding, purulent drainage or septal hematoma. Throat without erythema, tonsillar hypertrophy or exudate. Uvula midline. Airway patent. NECK: Trachea midline. No JVD or lymphadenopathy. Supple, nontender, no meningeal signs. CARDIOVASCULAR: very distant heart sounds, Regular rate and rhythm without murmurs, gallops, or rubs. RESPIRATORY: Clear to auscultation. Breath sounds equal bilaterally. No wheezes , rales, or rhonchi. GASTROINTESTINAL: Abdomen soft, non-tender, nondistended. No hepato-splenomegaly , or palpable masses. No guarding. MUSCULOSKELETAL: Extremities without clubbing, cyanosis, or edema. No joint tenderness, effusion, or edema noted. No calf tenderness. Negative Homans sign bilaterally. NEUROLOGICAL: Awake and alert. Cranial nerves II through XII intact. Motor and sensory grossly within normal limits. Five out of 5 muscle strength in all muscle groups. Normal speech. Laboratory Laboratory Tests Test 12/18/17 19:45 White Blood Count 9.4 Red Blood Count 5.58 Hemoglobin 15.9 Hematocrit 47.4 Mean Corpuscular Volume 85.0 Mean Corpuscular Hemoglobin 28.5 Mean Corpuscular Hemoglobin Concent 33.6 Red Cell Distribution Width 14.4 Platelet Count 170 Mean Platelet Volume 9.1 Neutrophils (%) (Auto) 73.3 Lymphocytes (%) (Auto) 17.0 Monocytes (%) (Auto) 8.1 Eosinophils (%) (Auto) 1.0 Basophils (%) (Auto) 0.6 Neutrophils # (Auto) 6.9 Lymphocytes # (Auto) 1.6 Monocytes # (Auto) 0.8 Eosinophils # (Auto) 0.1 Basophils # (Auto) 0.1 CBC Comment DIFF FINAL Differential Comment Prothrombin Time 10.0 Prothromb Time International Ratio 1.0 Activated Partial Thromboplast Time 24.7 Blood Urea Nitrogen 22 Creatinine 1.31 Random Glucose 162 Total Protein 8.2 Albumin 3.7 Calcium Level 8.9 Magnesium Level 2.7 Alkaline Phosphatase 77 Aspartate Amino Transf (AST/SGOT) 30 Alanine Aminotransferase (ALT/SGPT) 22 Total Bilirubin 0.4 Sodium Level 133 Potassium Level 4.4 Chloride Level 97 Carbon Dioxide Level 26.6 Anion Gap 9 Estimat Glomerular Filtration Rate 55 Total Creatine Kinase 223 Creatine Kinase MB 3.7 Troponin I 0.66 B-Type Natriuretic Peptide 227 Lipase 253 Result Diagram: 12/18/17194412/18/171944 Caprini VTE Risk Assessment Jensrinradha VTE Risk Assessment: No/Low Risk (score <= 1) Caprini Risk Assessment Model Point Value = 1 Point Value = 2 Point Value = 3 Point Value = 5 Age 41-60 Minor surgery BMI > 25 kg/m2 Swollen legs Varicose veins or History of unexplained or recurrent spontaneous Oral contraceptives or hormone replacement Sepsis (< 1 month) Serious lung disease, including pneumonia (< 1 month) Abnormal pulmonary function Acute myocardial infarction Congestive heart failure (< 1 month) History of inflammatory bowel disease Medical patient at bed rest Age 61-74 Arthroscopic surgery Major open surgery (> 45 min) Laparoscopic surgery (> 45 min) Malignancy Confined to bed (> 72 hours) Immobilizing plaster cast Central venous access Age >= 75 History of VTE Family history of VTE Factor V Leiden Prothrombin [id number] Lupus anticoagulant Anticardiolipin antibodies Elevated serum homocysteine Heparin-induced thrombocytopenia Other congenital or acquired thrombophilia Stroke (< 1 month) Elective arthroplasty Hip, pelvis, or leg fracture Acute spinal cord injury (< 1 month) Prophylaxis Regimen Total Risk Factor Score Risk Level Prophylaxis Regimen 0-1 Low Early ambulation 2 Moderate Order ONE of the following: *Sequential Compression Device (SCD) *Heparin 5000 units SQ BID 3-4 Higher Order ONE of the following medications: *Heparin 5000 units SQ TID *Enoxaparin/Lovenox 40 mg SQ daily (WT < 150 kg, CrCl > 30 mL/min) *Enoxaparin/Lovenox 30 mg SQ daily (WT < 150 kg, CrCl > 10-29 mL/min) *Enoxaparin/Lovenox 30 mg SQ BID (WT < 150 kg, CrCl > 30 mL/min) AND/OR *Sequential Compression Device (SCD) 5 or more Highest Order ONE of the following medications: *Heparin 5000 units SQ TID (Preferred with Epidurals) *Enoxaparin/Lovenox 40 mg SQ daily (WT < 150 kg, CrCl > 30 mL/min) *Enoxaparin/Lovenox 30 mg SQ daily (WT < 150 kg, CrCl > 10-29 mL/min) *Enoxaparin/Lovenox 30 mg SQ BID (WT < 150 kg, CrCl > 30 mL/min) AND *Sequential Compression Device (SCD) Assessment and Plan Assessment and Plan 67 y/o M, hx of triple bypass and packemaker placement, DM, CKD, and HTN presents with NSTEMI. Code Status Full code Discussed Condition With Problem List: (1) NSTEMI (non-ST elevated myocardial infarction) ICD Codes: I21.4 - Non-ST elevation (NSTEMI) myocardial infarction Status: Acute Plan: Chest pain 3 hours, alleviated by aspirin and Nitropaste Positive troponin at 0.66 EKG: No STEMI Follow-up troponins 2 Follow-up EKGs 2 Continue daily aspirin 325 Continue Nitropaste as needed Add atorvastatin daily Continue home metoprolol as blood pressure tolerates Telemetry Cardiology consult (2) Tachyarrhythmia ICD Codes: R00.0 - Tachycardia, unspecified Status: Acute Plan: Heart rate of 139 on admission Patient has pacer, denies history of A. fib Heart rate brought down by Cardizem 15 mg IV 1 Follow-up vital signs Telemetry Continue metoprolol 25 mg twice daily tomorrow as tolerated (3) Elevated brain natriuretic peptide (BNP) level ICD Codes: R79.89 - Other specified abnormal findings of blood chemistry Status: Chronic Plan: Questionable history of CHF BNP in 200s, appears to be baseline, cardiomegaly on chest x-ray Continue home Bumex 2 mg p.o. twice daily Monitor for signs of fluid overload Follow-up BNP tomorrow (4) CKD (chronic kidney disease) ICD Codes: N18.9 - Chronic kidney disease, unspecified Status: Chronic Plan: Creatinine 1.31, from 1.4 at last admission Caution with NSAIDs Avoid nephrotoxic agents Follow-up BMP tomorrow (5) Diabetes ICD Codes: E11.9 - Type 2 diabetes mellitus without complications Status: Chronic Plan: Glucose on admission 162 Hold home insulin Low-dose insulin sliding scale (6) Hypertension ICD Codes: I10 - Essential (primary) hypertension Status: Chronic Plan: Follow-up blood pressures Continue home lisinopril 5 mg daily tomorrow Continue home metoprolol 25 mg twice daily tomorrow (7) fen/ppx Status: Chronic Plan: Fluids: Encourage p.o. fluid Electrolytes: Follow-up BMPs and replete as needed Nutrition: diabetic diet GI prophylaxis: Omeprazole daily DVT prophylaxis: SCDs, heparin drip Judy Whitmore MD R2 Dec 18, 2017 22:00
--- NOTE | 2017-12-18 22:07 | RADRPT ---
EXAM DATE/TIME: 12/18/2017 21:53 [facility] COMPARISON: No previous studies available for comparison. INDICATIONS : Elavated blood pressure chest pain heart palpation. IV CONTRAST: 75 cc Omnipaque 350 (iohexol) IV RADIATION DOSE: 23.13 CTDIvol (mGy) MEDICAL HISTORY : Cardiovascular disease. Hypertension. diabetes SURGICAL HISTORY : Pacemaker. CABGPart of bowel removed ENCOUNTER: Initial ACUITY: 1 day PAIN SCALE: 5/10 LOCATION: chest TECHNIQUE: Volumetric scanning of the chest was performed using a pulmonary embolism protocol MIP images were re constructed. Using automated exposure control and adjustment of the mA and/or kV according to patien t size, radiation dose was kept as low as reasonably achievable to obtain optimal diagnostic quality images. DICOM format image data is available electronically for review and comparison. Follow-up recommendations for detected pulmonary nodules are based at a minimum on nodule size and pa tient risk factors according to Fleischner Society Guidelines. FINDINGS: PULMONARY ARTERIES: No filling defects are seen in the pulmonary arteries through the segmental level. LUNGS: There is no consolidation or pneumothorax . No concerning pulmonary nodule is visualized. PLEURAE: There is no pleural thickening or pleural effusion. MEDIASTINUM: There is good visualization of the great vessels of the middle mediastinum. No evidence of mediastin al or hilar adenopathy/mass. MUSCULOSKELETAL: Within normal limits for patient age. MISCELLANEOUS: The visualized upper abdominal organs demonstrate no acute abnormality. CONCLUSION: 1. Negative for pulmonary embolus. Severe coronary calcifications status post CABG. Cardiomegaly. Jorge A Colon MD on December 18, 2017 at 22:03 Board Certified Radiologist. This report was verified electronically.
[2017-12-18] MEDS ORDERED: NITROGLYCERIN 2% OINT 1 GM PACKET TOP PRN (22:45)
[2017-12-18] MEDS ORDERED: SODIUM CHLORIDE 0.9% FLUSH 10 ML FLUSH IV FLUSH PRN (22:45)
[2017-12-18] MEDS ORDERED: ACETAMINOPHEN 500 MG CPLT PO PRN (22:45)
[2017-12-18] MEDS ORDERED: GLUCAGON 1 MG/ML VIAL OTHER PRN (23:00)
[2017-12-18] MEDS ORDERED: DEXTROSE 50% IN WATER 50 ML VIAL(D50) IV PUSH PRN (23:00)
[2017-12-18] MEDS ORDERED: ATORVASTATIN 40 MG TAB PO SCH (23:00)
[2017-12-19] VITALS (8 sets, daily range): BP systolic 92–102; BP diastolic 54–59; PULSE 67–97; RESP 18–20; TEMP 98.3–98.5; O2SAT 92–97
[2017-12-19] MEDS ORDERED: HEPARIN SODIUM - IV 10,000 UNITS/10 ML VIAL IV PRN ×2 (03:00)
[2017-12-19 04:42] LABS: TROPONIN I 10.8 NG/ML (0.02-0.05)
[2017-12-19 05:10] LABS: BICARBONATE 28.5 MEQ/L (21.0-32.0); BLOOD UREA NITROGEN 20 MG/DL (7-18); CALCIUM 8.5 MG/DL (8.5-10.1); CHLORIDE 98 MEQ/L (98-107); CREATININE 1.06 MG/DL (0.60-1.30); GLOMERULAR FILTRATION RATE 70 ML/MIN (>89); GLUCOSE,RANDOM 145 MG/DL (74-106); MAGNESIUM 2.6 MG/DL (1.5-2.5); SODIUM (NA) 134 MEQ/L (136-145)
[2017-12-19 05:11] LABS: CHOLESTEROL 160 MG/DL (120-200); TRIGLYCERIDES 249 MG/DL (42-150)
[2017-12-19 05:13] LABS: AUTOMATED NEUTROPHIL # 5.4 TH/MM3 (1.8-7.7); BASOPHIL % 0.6 % (0.0-2.0); EOSINOPHIL # 0.1 TH/MM3 (0-0.4); EOSINOPHIL % 1.8 % (0.0-4.0); HEMATOCRIT 42.2 % (39.0-51.0); HEMOGLOBIN 14.1 GM/DL (13.0-17.0); LYMPH % 23.5 % (9.0-44.0); LYMPHOCYTE # 1.9 TH/MM3 (1.0-4.8); MEAN CELL VOLUME 84.4 FL (80.0-100.0); MEAN CORPUSCULAR HEMOGLOBIN 28.3 PG (27.0-34.0); MEAN CORPUSCULAR HGB CONC 33.5 % (32.0-36.0); MEAN PLATELET VOLUME 9.6 FL (7.0-11.0); MONO % 8.9 % (0.0-8.0); MONOCYTE # 0.7 TH/MM3 (0-0.9); NEUT % 65.2 % (16.0-70.0); PLATELET COUNT 167 TH/MM3 (150-450); RED CELL DISTRIBUTION WIDTH 14.1 % (11.6-17.2); WHITE BLOOD COUNT 8.3 TH/MM3 (4.0-11.0)
[2017-12-19 05:15] LABS: CHOLESTEROL/ HDL RATIO 4.01 RATIO; HDL CHOLESTEROL 39.9 MG/DL (40.0-60.0); LDL CHOLESTEROL 70 MG/DL (0-99)
[2017-12-19] MEDS: INSULIN ASPART SUPPLEMENTAL SCALE SQ SCH ×4 (08:00→21:00)
[2017-12-19] MEDS: SODIUM CHLORIDE 0.9% FLUSH 10 ML FLUSH IV FLUSH SCH ×2 (08:59→21:00)
[2017-12-19] MEDS ORDERED: ASPIRIN 325 MG TAB PO SCH (09:00)
[2017-12-19] MEDS: BUMETANIDE 1 MG TAB PO SCH ×2 (09:01→21:00)
[2017-12-19] MEDS: LISINOPRIL 5 MG TAB PO SCH (09:02)
[2017-12-19] MEDS: PANTOPRAZOLE SOD 40 MG DELAYED RELEASE TAB PO SCH (09:02)
[2017-12-19] MEDS: METOPROLOL TARTRATE 25 MG TAB PO SCH ×2 (09:02→21:16)
[2017-12-19 09:21] LABS: TROPONIN I 12.3 NG/ML (0.02-0.05)
--- NOTE | 2017-12-19 11:46 | HHI.FPPN ---
Subjective Remarks No acute issues overnight. Blood pressure is slightly low in the 90s/50s. Otherwise, vitals are stable and patient remains afebrile. He is not experiencing any chest pain and denies any fever, chills, nausea, vomiting, abdominal pain, dizziness, headedness or shortness of breath. (Charlene Lara MD, R3) Objective Vitals Vital Signs Date Time Temp Pulse Resp B/P (MAP) Pulse Ox O2 Delivery O2 Flow Rate FiO2 12/19/17 10:31 Room Air 12/19/17 08:00 98.3 76 20 97/56 (70) 95 12/19/17 03:55 98.5 67 18 92/54 (67) 92 12/19/17 03:47 67 12/19/17 00:01 69 12/18/17 23:30 97.8 71 18 92/54 (67) 95 12/18/17 22:52 70 12/18/17 22:37 97.7 70 18 93/50 (64) 96 12/18/17 22:06 12/18/17 22:05 69 16 103/55 (71) 96 12/18/17 19:50 98 Room Air 12/18/17 19:50 18 98 Room Air 12/18/17 19:36 149 18 119/62 (81) 97 Room Air 12/18/17 18:51 98.0 72 16 125/71 (89) 95 Room Air I/O 12/18/17 12/18/17 12/18/17 12/19/17 12/19/17 12/19/17 07:00 15:00 23:00 07:00 15:00 23:00 Intake Total 480 ml Output Total 400 ml 550 ml Balance 80 ml -550 ml Intake Oral 480 ml Output Urine Total 400 ml 550 ml # Bowel Movements 0 (Charlene Lara MD, R3) Result Diagram: 12/19/1741912/19/17419 Imaging Last Impressions Chest X-Ray 12/18/171936 Signed Impressions: Service Date/Time: Monday, December 18, 2017 19:56 - CONCLUSION: 1. Compensated cardiomegaly. 2. Minimal left perihilar atelectasis/scarring. Lungs are otherwise clear Skyler Wetzel MD CT Angiography 12/18/171936 Signed Impressions: Service Date/Time: Monday, December 18, 2017 21:53 - CONCLUSION: 1. Negative for pulmonary embolus. Severe coronary calcifications status post CABG. Cardiomegaly. Jorge A Colon MD Objective Remarks GENERAL: Well-nourished, well-developed male patient in no acute distress. SKIN: Warm and dry. No rashes or lesions present. EYES: No scleral icterus. No conjunctival injection or drainage. Pupils equal, round, reactive to light and accommodation. Extraocular movements intact. THROAT: Moist mucous membranes. No erythema or exudate in oropharynx. NECK: Supple, trachea midline. No lymphadenopathy. CARDIOVASCULAR: Regular rate and rhythm without murmurs, gallops, or rubs. Strong radial and pedal pulses. CHEST: Symmetric chest expansion with respiration. RESPIRATORY: Breath sounds clear to auscultation bilaterally. No accessory muscle use. No wheezes, rhonchi or rales. GASTROINTESTINAL: Abdomen soft, non-tender, nondistended. No masses or hernias. No hepatosplenomegaly. Bowel sounds present. MUSCULOSKELETAL: No cyanosis or edema. No nail changes. . NEURO: Cranial nerves II through XII grossly intact. Good muscle tone. PSYCH: Normal mood and affect. Good eye contact. Good insight and judgment. Normal speech. (Charlene Lara MD, R3) A/P Assessment and Plan 67 y/o M, hx of triple bypass and packemaker placement, DM, CKD, and HTN admitted with NSTEMI. Discharge Planning Pending further cardiac evaluation. (Charlene Lara MD, R3) Attending Attestation Table rounds with DR Lara, Dr Sterling, Dr Verdugo and Dr Ivey were performed this morning A detailed discussion regarding patients admission and hospital course was reviewed with Resident team Patient was seen and examined with team Agree with contents in above note SeeAssessment and Plan (Ehsan Sims MD) Problem List: (1) NSTEMI (non-ST elevated myocardial infarction) ICD Codes: I21.4 - Non-ST elevation (NSTEMI) myocardial infarction Status: Acute Plan: Chest pain 3 hours, alleviated by aspirin and Nitropaste Positive troponin at 0.66, trending up overnight to 10.8 then 12.3 EKG: No STEMI Continue daily aspirin 325 Continue Nitropaste as needed Add atorvastatin daily Continue home metoprolol as blood pressure tolerates Telemetry Cardiology consult Patient counseled to notify MD if he experiences any chest pain (2) Tachyarrhythmia ICD Codes: R00.0 - Tachycardia, unspecified Status: Resolved Plan: Resolved Heart rate of 139 on admission Patient has pacer, denies history of A. fib Heart rate brought down by Cardizem 15 mg IV 1 Follow-up vital signs Telemetry Continue metoprolol 25 mg twice daily (3) Elevated brain natriuretic peptide (BNP) level ICD Codes: R79.89 - Other specified abnormal findings of blood chemistry Status: Chronic Plan: Questionable history of CHF BNP trending down from 218-227 today Continue home Bumex 2 mg p.o. twice daily Monitor for signs of fluid overload (4) Diabetes ICD Codes: E11.9 - Type 2 diabetes mellitus without complications Status: Chronic Plan: Glucose on admission 162 Hold home insulin Low-dose insulin sliding scale (5) Hypertension ICD Codes: I10 - Essential (primary) hypertension Status: Chronic Plan: Monitor closely Continue home lisinopril 5 mg daily Continue home metoprolol 25 mg twice daily (6) fen/ppx Status: Chronic Plan: Fluids: Encourage p.o. 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
[2017-12-19] MEDS ORDERED: CLOPIDOGREL 300 MG TAB PO ONE (12:00)
--- NOTE | 2017-12-19 14:23 | EKG ---
Date Performed: 12/18/2017 Time Performed: 19:32:42 PTAGE: 67 years EKG: UNCERTAIN IRREGULAR RHYTHM ELECTRONIC VENTRICULAR PACEMAKER -- CONTOUR ANALYSIS BASED ON IN TRINSIC RHYTHM MARKED LEFT AXIS DEVIATION INTRAVENTRICULAR CONDUCTION DELAY There appears to be ventr icular pacing. ABNORMAL ECG PREVIOUS TRACING : 05/16/2017 10.27 DOCTOR: Drake Patel Interpretating Date/Time 12/19/2017 14:22:59
--- NOTE | 2017-12-19 14:24 | EKG ---
Date Performed: 12/19/2017 Time Performed: 02:01:50 PTAGE: 67 years EKG: Demand pacing Pacemaker rhythm - no further analysis Abnormal ECG Since PREVIOUS TRACING , no significant change noted PREVIOUS TRACIN12/18/2017 20.53 DOCTOR: Drake Patel Interpretating Date/Time 12/19/2017 14:23:19
--- NOTE | 2017-12-19 14:24 | EKG ---
Date Performed: 12/18/2017 Time Performed: 20:53:35 PTAGE: 67 years EKG: ELECTRONIC VENTRICULAR PACEMAKER ABNORMAL RHYTHM ECG Since PREVIOUS TRACING , no significant change noted PREVIOUS TRACIN12/18/2017 19.32 DOCTOR: Drake Patel Interpretating Date/Time 12/19/2017 14:23:10
--- NOTE | 2017-12-19 14:24 | EKG ---
Date Performed: 12/19/2017 Time Performed: 11:23:05 PTAGE: 67 years EKG: ELECTRONIC VENTRICULAR PACEMAKER ABNORMAL RHYTHM ECG Since PREVIOUS TRACING , no significant change noted PREVIOUS TRACIN12/19/2017 05.36 DOCTOR: Drake Patel Interpretating Date/Time 12/19/2017 14:23:39
--- NOTE | 2017-12-19 14:24 | EKG ---
Date Performed: 12/19/2017 Time Performed: 05:36:00 PTAGE: 67 years EKG: Ventricular pacing Pacemaker rhythm - no further analysis Abnormal ECG Since PREVIOUS TRACING , no significant change noted PREVIOUS TRACIN12/19/2017 02.01 DOCTOR: Drake Patel Interpretating Date/Time 12/19/2017 14:23:30
--- NOTE | 2017-12-19 14:40 | MB ---
cc: TRISH BUSTOS MD DATE OF CONSULTATION: 12/19/2017. HISTORY OF PRESENT ILLNESS: Mr. Sparks is a 67-year-old white male with a history of three-vessel bypass five years ago, pacemaker placement, diabetes, chronic kidney disease and hypertension. He had an episode of chest discomfort and tachycardia and hypertension. The pain was in the left side of the chest and lasted for about two hours and it resolved after he was treated in the emergency room. His pain is now resolved. He has not had any shortness of breath. 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 PAST MEDICAL HISTORY: His past medical history is positive for: 1. Three-vessel bypass. 2. Pacemaker placement in 2011. 3. Chronic kidney disease. 4. Hypertension. 5. Diabetes mellitus. 6. Abdominal surgery after trauma. MEDICATIONS: His medications include: 1. Bentyl. 2. Lipitor. 3. Metoprolol. 4. Lisinopril. 5. Aspirin. 6. Tylenol. 7. Bumex. 8. Furosemide. 9. Zofran. 10. Insulin. ALLERGIES: None. SOCIAL HISTORY: The patient does not smoke and does not drink alcohol. . FAMILY HISTORY: Family history is negative for heart disease. REVIEW OF SYSTEMS: The review of systems is otherwise negative. PHYSICAL EXAMINATION: VITAL SIGNS: Blood pressure is 97/56, pulse 76 and regular. HEAD, EYES, EARS, NOSE, THROAT: Negative. NECK: 2+ carotid upstrokes, no bruits. LUNGS: Clear. HEART: Regular with no murmurs, rubs or gallops. ABDOMEN: Abdomen soft. No bruits. EXTREMITIES: Without edema. 2+ distal pulses. NEUROLOGIC: Grossly intact. EKGS: EKG was reviewed and showed sinus rhythm and ventricular pacing. LABORATORY DATA: Hemoglobin 14.1. Potassium 3.4, creatinine 1.1. CK 238, 209. Troponin 0.66, 10.8, 12.3. LDL 70, HDL 40. DIAGNOSIS: 1. Non-S-T elevation myocardial function. 2. Coronary artery disease with history of three vessel coronary bypass. 3. Diabetes mellitus. 4. Hypertension. 5. Tachyarrhythmia. 6. Chronic kidney disease. DISPOSITION: 1. Mr. Sparks will be monitored on telemetry. 2. We will obtain an adenosine marker perfusion study to re-evaluate his coronary artery disease. 3. I will also obtain an echocardiogram to evaluate his left ventricular function. 4. He is currently pain-free. 5. We will continue therapy for coronary artery disease and aggressive modification of his cardiac risk factors. 6. He will follow up with his director reactor projects, Dr. Hickman at [facility] after discharge. MD REBEKAH Red/ANA /11:12 AM /2:26 PM
[2017-12-19] MEDS: HEPARIN-D5W 25,000 U/250 ML 250 ML IV PRN (20:18)
[2017-12-19] MEDS: ATORVASTATIN 80 MG TAB PO SCH (21:16)
[2017-12-20] VITALS (7 sets, daily range): BP systolic 95–156; BP diastolic 53–70; PULSE 69–87; RESP 16–20; TEMP 97.3–98.4; O2SAT 93–99
[2017-12-20] MEDS: INSULIN ASPART SUPPLEMENTAL SCALE SQ SCH ×4 (08:00→20:54)
[2017-12-20] MEDS: SODIUM CHLORIDE 0.9% FLUSH 10 ML FLUSH IV FLUSH SCH ×2 (08:53→20:55)
[2017-12-20] MEDS: PANTOPRAZOLE SOD 40 MG DELAYED RELEASE TAB PO SCH (08:54)
[2017-12-20] MEDS: CLOPIDOGREL 75 MG TAB PO SCH (08:54)
[2017-12-20] MEDS: ASPIRIN 81 MG CHEW TAB PO SCH (08:54)
[2017-12-20] MEDS: LISINOPRIL 5 MG TAB PO SCH (08:54)
[2017-12-20] MEDS: METOPROLOL TARTRATE 25 MG TAB PO SCH ×2 (08:54→20:54)
[2017-12-20] MEDS: BUMETANIDE 1 MG TAB PO SCH ×2 (08:54→20:54)
[2017-12-20 09:06] LABS: HEMOGLOBIN A1C 6.7 % (4.3-6.0)
--- NOTE | 2017-12-20 10:50 | HHI.FPPN ---
Subjective Remarks Patient seen and examined bedside today. Patient was sent to do adenosine marker perfusion study to evaluate coronary artery disease, however once he got to the test he got scared. He states that he has chest pain that is not as strong as on Thursday. He feels the same type of hot flashes as he had on Thursday. He denies any nausea/vomiting. He denies any radiation of the epigastric chest pain down his arm. He denies any numbness of extremities. He overall feels bad and feels like something is wrong with him. Objective Vitals Vital Signs Date Time Temp Pulse Resp B/P (MAP) Pulse Ox O2 Delivery O2 Flow Rate FiO2 12/20/17 10:04 95 12/20/17 08:00 97.8 79 20 99/66 (77) 95 12/20/17 04:10 Room Air 12/20/17 04:00 81 12/20/17 04:00 97.3 81 18 107/70 (82) 98 12/20/17 00:00 97.5 75 18 156/70 (98) 93 12/20/17 00:00 Room Air 12/20/17 00:00 70 12/19/17 20:00 98.3 97 18 101/59 (73) 97 12/19/17 20:00 72 12/19/17 20:00 Room Air 12/19/17 19:29 Room Air 12/19/17 17:44 97 21 12/19/17 16:00 98.5 79 20 102/56 (71) 97 12/19/17 16:00 75 12/19/17 14:47 Room Air 12/19/17 12:00 78 12/19/17 12:00 98.3 74 20 96/54 (68) 95 I/O 12/19/17 12/19/17 12/19/17 12/20/17 12/20/17 12/20/17 07:00 15:00 23:00 07:00 15:00 23:00 Intake Total 480 ml Output Total 400 ml 550 ml Balance 80 ml -550 ml Intake Oral 480 ml Output Urine Total 400 ml 550 ml # Voids 2 3 # Bowel Movements 0 0 Result Diagram: 12/19/1741912/19/17419 Objective Remarks GENERAL: Well-nourished, well-developed male patient in no acute distress. SKIN: Warm and dry. No rashes or lesions present. EYES: No scleral icterus. No conjunctival injection or drainage. Pupils equal, round, reactive to light and accommodation. Extraocular movements intact. THROAT: Moist mucous membranes. No erythema or exudate in oropharynx. NECK: Supple, trachea midline. No lymphadenopathy. CARDIOVASCULAR: Regular rate and rhythm without murmurs, gallops, or rubs. Strong radial and pedal pulses. No pain on palpation of epigastric area CHEST: Symmetric chest expansion with respiration. RESPIRATORY: Breath sounds clear to auscultation bilaterally. No accessory muscle use. No wheezes, rhonchi or rales. GASTROINTESTINAL: Abdomen soft, non-tender, nondistended. No masses or hernias. No hepatosplenomegaly. Bowel sounds present. MUSCULOSKELETAL: No cyanosis or edema. No nail changes. . NEURO: Cranial nerves II through XII grossly intact. Good muscle tone. PSYCH: Normal mood and affect. Good eye contact. Good insight and judgment. Normal speech. A/P Assessment and Plan 67 y/o M, hx of triple bypass and packemaker placement, DM, CKD, and HTN admitted with NSTEMI. Discharge Planning Pending further cardiac evaluation. Problem List: (1) NSTEMI (non-ST elevated myocardial infarction) ICD Codes: I21.4 - Non-ST elevation (NSTEMI) myocardial infarction Status: Acute Plan: Today; chest pain for last 30 minutes, hypotension at time of exam -Remove Nitropaste -Stat EKG -Troponins -We will call cardiology with any abnormality -Reinforced to patient that once his symptoms subside he needs to do the perfusion test Original admission; chest pain 3 hours, alleviated by aspirin and Nitropaste Positive troponin at 0.66, trending up overnight to 10.8 then 12.3 EKG: No STEMI Continue daily aspirin 325 Continue atorvastatin daily Continue home metoprolol as blood pressure tolerates Telemetry Cardiology consult Follow-up echocardiogram (2) Tachyarrhythmia ICD Codes: R00.0 - Tachycardia, unspecified Status: Resolved Plan: Resolved Heart rate of 139 on admission Patient has pacer, denies history of A. fib Heart rate brought down by Cardizem 15 mg IV 1 Follow-up vital signs Telemetry Continue metoprolol 25 mg twice daily (3) Elevated brain natriuretic peptide (BNP) level ICD Codes: R79.89 - Other specified abnormal findings of blood chemistry Status: Chronic Plan: Questionable history of CHF BNP 218 Continue home Bumex 2 mg p.o. twice daily Monitor for signs of fluid overload (4) Diabetes ICD Codes: E11.9 - Type 2 diabetes mellitus without complications Status: Chronic Plan: Glucose on admission 162 Hold home insulin Low-dose insulin sliding scale (5) Hypertension ICD Codes: I10 - Essential (primary) hypertension Status: Chronic Plan: Monitor closely Continue home lisinopril 5 mg daily Continue home metoprolol 25 mg twice daily (6) fen/ppx Status: Chronic Plan: Fluids: Encourage p.o. fluid Electrolytes: Follow-up BMPs and replete as needed Nutrition: diabetic diet GI prophylaxis: Omeprazole daily DVT prophylaxis: SCDs, heparin drip Problem Qualifiers (1) Diabetes: Qualified Codes: E11.9 - Type 2 diabetes mellitus without complications; Z79.4 - correction (current) use of insulin (2) Hypertension: Qualified Codes: I10 - Essential (primary) hypertension Judy Whitmore MD R2 Dec 20, 2017 10:50
[2017-12-20] MEDS ORDERED: ACETAMINOPHEN/HYDROcodone 325 MG/7.5 MG TAB PO PRN (11:45)
[2017-12-20] MEDS ORDERED: MORPHINE SULFATE 2 MG/ML INJ IV PUSH PRN (12:00)
[2017-12-20] MEDS: HEPARIN-D5W 25,000 U/250 ML 250 ML IV PRN (14:58)
--- NOTE | 2017-12-20 16:23 | PD.CARD.PN ---
Subjective Subjective Remarks No CP or SOB, refused nuclear stress test Objective Medications Current Medications Medications (Trade) Dose Ordered Sig/August Route Start Time Stop Time Status Last Admin (Heparin Inj) 5,000 units UNSCH PRN IV 12/19/17 03:00 (Heparin Inj) 2,500 units UNSCH PRN IV 12/19/17 03:00 Heparin Sodium/ Dextrose 250 ml @ 10 mls/hr TITRATE PRN IV 12/18/17 21:00 12/20/17 14:58 (Bumetanide) 2 mg BID PO 12/19/17 09:00 12/20/17 08:54 (Prinivil) 5 mg DAILY PO 12/19/17 09:00 12/20/17 08:54 (Lopressor) 25 mg BID PO 12/19/17 09:00 12/20/17 08:54 (NS Flush) 2 ml BID IV FLUSH 12/19/17 09:00 (NS Flush) 2 ml UNSCH PRN IV FLUSH 12/18/17 22:45 (Nitroglycerin 2% Oint) 0.5 inch Q6HR PRN TOP 12/18/17 22:45 (Tylenol) 500 mg Q4H PRN PO 12/18/17 22:45 (Protonix) 40 mg DAILY PO 12/19/17 09:00 12/20/17 08:54 (Restoril) 15 mg HS PRN PO 12/18/17 21:00 12/19/17 22:47 (D50w (Vial) Inj) 50 ml UNSCH PRN IV PUSH 12/18/17 23:00 (Glucagon Inj) 1 mg UNSCH PRN OTHER 12/18/17 23:00 (NovoLOG SUPPLEMENTAL SCALE) 1 ACHS SLIDING SCALE SQ 12/19/17 08:00 (Aspirin Chew) 81 mg DAILY PO 12/20/17 09:00 12/20/17 08:54 (Lipitor) 80 mg HS PO 12/19/17 21:00 12/19/17 21:16 (Plavix) 75 mg DAILY PO 12/20/17 09:00 12/20/17 08:54 ([place] 7.5-325 Mg) 1 tab Q4H PRN PO 12/20/17 11:45 (Morphine Inj) 2 mg Q5M PRN IV PUSH 12/20/17 12:00 Vital Signs / I&O Vital Signs Date Time Temp Pulse Resp B/P (MAP) Pulse Ox O2 Delivery O2 Flow Rate FiO2 12/20/17 12:00 97.3 79 20 95/53 (67) 99 12/20/17 10:04 95 12/20/17 08:00 97.8 79 20 99/66 (77) 95 12/20/17 04:10 Room Air 12/20/17 04:00 81 12/20/17 04:00 97.3 81 18 107/70 (82) 98 12/20/17 00:00 97.5 75 18 156/70 (98) 93 12/20/17 00:00 Room Air 12/20/17 00:00 70 12/19/17 20:00 98.3 97 18 101/59 (73) 97 12/19/17 20:00 72 12/19/17 20:00 Room Air 12/19/17 19:29 Room Air 12/19/17 17:44 97 21 I/O 12/19/17 12/19/17 12/19/17 12/20/17 12/20/17 12/20/17 07:00 15:00 23:00 07:00 15:00 23:00 Intake Total 480 ml Output Total 400 ml 550 ml 450 ml Balance 80 ml -550 ml -450 ml Intake Oral 480 ml Output Urine Total 400 ml 550 ml 450 ml # Voids 2 3 # Bowel Movements 0 0 Physical Exam GENERAL: In NAD SKIN: Warm and dry. HEAD: Normocephalic. EYES: No scleral icterus. No injection or drainage. NECK: Supple, trachea midline. No JVD or lymphadenopathy. CARDIOVASCULAR: Regular rate and rhythm without murmurs, gallops, or rubs. RESPIRATORY: Breath sounds equal bilaterally. No accessory muscle use. GASTROINTESTINAL: Abdomen soft, non-tender, nondistended. MUSCULOSKELETAL: No cyanosis, or edema. Laboratory Laboratory Tests Test 12/19/17 19:35 12/20/17 03:34 12/20/17 12:37 Activated Partial Thromboplast Time 36.9 SEC 40.4 SEC 42.2 SEC Troponin I 9.84 NG/ML Assessment and Plan Problem List: (1) NSTEMI (non-ST elevated myocardial infarction) ICD Codes: I21.4 - Non-ST elevation (NSTEMI) myocardial infarction Status: Acute (2) CAD (coronary artery disease) ICD Codes: I25.10 - Atherosclerotic heart disease of [place] coronary artery without angina pectoris (3) Hx of CABG ICD Codes: Z95.1 - Presence of aortocoronary bypass graft (4) Diabetes ICD Codes: E11.9 - Type 2 diabetes mellitus without complications Status: Chronic (5) Hypertension ICD Codes: I10 - Essential (primary) hypertension Status: Chronic (6) CKD (chronic kidney disease) ICD Codes: N18.9 - Chronic kidney disease, unspecified Status: Chronic Assessment and Plan Continue post IL care. Continue aggressive risk factor modification. He refused nuclear ST. Continue conservative management. Increase activity, PT. 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
--- NOTE | 2017-12-20 16:50 | ECHRPT ---
Indication: NSTEMI CONCLUSIONS Moderately dilated left ventricle. Mild concentric left ventricular hypertrophy. The left ventricular systolic function is severely reduced with an estimated ejection fraction in th e range of 20-25%. There are findings consistent with dilated cardiomyopathy. A pacemaker wire is noted. The left atrial size is jarfgscw-gz-bvlyumeb dilated. The right atrial size is iowm-vg-mbuuhmofuz dilated. There is a pacemaker wire present in the right atrial cavity. Qsru-ck-pjddicmr mitral valve regurgitation. There is mild tricuspid valve regurgitation. The estimated pulmonary arterial pressure is 52 mmHg. Mild pulmonary valve regurgitation. BP: 107 / 70 HR: 81 Rhythm: Sinus MEASUREMENTS (Male / Female) Normal Values Technical Quality:Fair 2D ECHO LV Diastolic Diameter PLAX 7.2 cm 4.2 - 5.9 / 3.9 - 5.3 cm LV Systolic Diameter PLAX 6.7 cm IVS Diastolic Thickness 1.1 cm 0.6 - 1.0 / 0.6 - 0.9 cm LVPW Diastolic Thickness 1.1 cm 0.6 - 1.0 / 0.6 - 0.9 cm LV Relative Wall Thickness 0.3 RV Internal Dim ED PLAX 3.4 cm LVOT Diameter 2.2 cm Aortic Root Diameter 3.1 cm LA Systolic Diameter LX 4.9 cm 3.0 - 4.0 / 2.7 - 3.8 cm M-MODE AV Cusp Separation MM 2.0 cm DOPPLER AV Peak Velocity 85.5 cm/s AV Peak Gradient 2.9 mmHg AV Mean Gradient 2.0 mmHg AV Velocity Time Integral 11.1 cm LVOT Peak Velocity 48.9 cm/s LVOT Peak Gradient 1.0 mmHg LVOT Velocity Time Integral 7.8 cm AV Area Cont Eq vti 2.7 cm AV Area Cont Eq pk 2.2 cm Mitral E Point Velocity 97.7 cm/s LV E' Lateral Velocity 8.0 cm/s Mitral E to LV E' Lateral Ratio 12.2 LV E' Septal Velocity 4.2 cm/s Mitral E to LV E' Septal Ratio 23.1 TR Peak Velocity 322.0 cm/s TR Peak Gradient 41.5 mmHg Right Atrial Pressure 10.0 mmHg Pulmonary Artery Systolic Pressu 51.5 mmHg Right Ventricular Systolic Press 51.5 mmHg PV Peak Velocity 53.4 cm/s PV Peak Gradient 1.1 mmHg FINDINGS LEFT VENTRICLE Moderately dilated left ventricle. Mild concentric left ventricular hypertrophy. The left ventricular systolic function is severely reduced with an estimated ejection fraction in th e range of 20-25%. There are findings consistent with dilated cardiomyopathy. RIGHT VENTRICLE A pacemaker wire is noted. LEFT ATRIUM The left atrial size is vczftqfe-yw-wrfrztiq dilated. RIGHT ATRIUM The right atrial size is ourl-xk-chcmeeabig dilated. There is a pacemaker wire present in the right atrial cavity. ATRIAL SEPTUM No atrial level shunt is demonstrated by color flow Doppler interrogation. AORTA The aortic root and proximal ascending aorta are normal in size on limited imaging. MITRAL VALVE Cktg-nn-oidfwhin mitral valve regurgitation. AORTIC VALVE Trileaflet aortic valve. TRICUSPID VALVE There is mild tricuspid valve regurgitation. The estimated pulmonary arterial pressure is 51.5 mmHg. PULMONARY VALVE Mild pulmonary valve regurgitation. VESSELS The inferior vena cava is normal in size. PERICARDIUM No pericardial effusion. Rafita Gallagher MD, FACC (Electronically Signed) Final Date:20 December 2017 16:49
[2017-12-20] MEDS ORDERED: LORazepam 1 MG TAB PO ONE (17:30)
[2017-12-20] MEDS: ATORVASTATIN 80 MG TAB PO SCH (20:54)
[2017-12-21] VITALS (9 sets, daily range): BP systolic 100–113; BP diastolic 56–62; PULSE 60–76; RESP 18; TEMP 97.5–98.9; O2SAT 95–98
[2017-12-21] MEDS: ISOSORBIDE MONONITRATE 30 MG CR TAB (IMDUR) PO SCH ×2 (05:47→07:17)
[2017-12-21] MEDS: INSULIN ASPART SUPPLEMENTAL SCALE SQ SCH ×3 (08:00→17:00)
[2017-12-21 08:14] LABS: HEMATOCRIT 44.7 % (39.0-51.0); HEMOGLOBIN 15.1 GM/DL (13.0-17.0); MEAN CELL VOLUME 84.4 FL (80.0-100.0); MEAN CORPUSCULAR HEMOGLOBIN 28.4 PG (27.0-34.0); MEAN CORPUSCULAR HGB CONC 33.7 % (32.0-36.0); MEAN PLATELET VOLUME 9.3 FL (7.0-11.0); PLATELET COUNT 163 TH/MM3 (150-450); RED CELL DISTRIBUTION WIDTH 14.1 % (11.6-17.2); WHITE BLOOD COUNT 7.3 TH/MM3 (4.0-11.0)
[2017-12-21] MEDS: SODIUM CHLORIDE 0.9% FLUSH 10 ML FLUSH IV FLUSH SCH (09:00)
[2017-12-21] MEDS: LISINOPRIL 5 MG TAB PO SCH (09:04)
[2017-12-21] MEDS: PANTOPRAZOLE SOD 40 MG DELAYED RELEASE TAB PO SCH (09:04)
[2017-12-21] MEDS: CLOPIDOGREL 75 MG TAB PO SCH (09:04)
[2017-12-21] MEDS: METOPROLOL TARTRATE 25 MG TAB PO SCH (09:04)
[2017-12-21] MEDS: ASPIRIN 81 MG CHEW TAB PO SCH (09:05)
[2017-12-21] MEDS: BUMETANIDE 1 MG TAB PO SCH (09:05)
[2017-12-21] MEDS: HEPARIN-D5W 25,000 U/250 ML 250 ML IV PRN (10:19)
[2017-12-21] MEDS ORDERED: REGADENOSON INJ 0.4 MG/5 ML SYR ONE (12:12)
--- NOTE | 2017-12-21 14:33 | RADRPT ---
EXAM DATE/TIME: 12/21/2017 11:46 [facility] COMPARISON: CT PULMONARY ANGIOGRAM, December 18, 2017, 21:53. INDICATIONS : Left chest pain with dyspnea. Abnormal EKG. DOSE: 25.4 mCi Tc99m Myoview at stress. 8.7 mCi Tc99m Myoview at rest. 0.4 mg Lexiscan STRESS SYMPTOMS: Dyspnea and flushed. EJECTION FRACTION: 19% MEDICAL HISTORY : Diabetes mellitus type 2. Hypertension. SURGICAL HISTORY : Coronary artery stent. Pacemaker. CABG ENCOUNTER: Initial ACUITY: 1 day PAIN SCALE: 5/10 LOCATION: Left chest TECHNIQUE: The patient underwent pharmacologic stress with infusion of prescribed dose. Continuous ECG tracing was monitored during stress. Gated SPECT imaging was performed after stress and conventional SPECT i maging was performed at rest. The examination was performed on a SPECT/CT scanner, both attenuation and non-corrected datasets were reviewed. FINDINGS: DISTRIBUTION: The maximum perfused segment at stress is in the inferoseptal wall. PERFUSION STUDY: Lethargy and is dilated on both stress and rest images. There is an inhomogeneous uptake throughout the left ventricular myocardium with regional variations between 30 and 40%. The pattern of perfusio n at stress and rest is unchanged and there is no evidence of redistribution. Summed stress score is elevated at 15. GATED STUDY: Very poor wall motion. CONCLUSION: 1. Left ventricular dilation, global hypokinesis, and scattered pattern of decreased fixed defects th roughout the left ventricular myocardium suggests cardiomyopathy. 2. No reversible perfusion defect seen. RISK CATEGORY: Intermediate (1-3% Annual Mortality Rate) Declan Lentz MD on December 21, 2017 at 14:29 Board Certified Radiologist. This report was verified electronically.
--- NOTE | 2017-12-21 14:41 | HHI.FPPN ---
Subjective Remarks Patient seen and examined this morning. No acute events overnight. Pt stated he feels well, would like to go home. Denies CP, SOB, abdominal pain, or n/v. Objective Vitals Vital Signs Date Time Temp Pulse Resp B/P (MAP) Pulse Ox O2 Delivery O2 Flow Rate FiO2 12/21/17 13:18 97.8 60 18 103/57 (72) 98 12/21/17 09:02 75 112/60 (77) 12/21/17 08:00 98.9 60 18 107/56 (73) 98 12/21/17 08:00 Room Air 12/21/17 07:57 63 12/21/17 04:00 97.7 74 18 100/58 (72) 95 12/21/17 03:58 68 12/21/17 00:26 97.5 66 18 113/62 (79) 98 12/21/17 00:00 76 12/21/17 00:00 Room Air 12/20/17 20:00 98.4 80 16 136/61 (86) 98 12/20/17 20:00 Room Air 12/20/17 20:00 87 12/20/17 18:00 Nasal Cannula 2.00 12/20/17 16:00 74 12/20/17 16:00 97.4 69 20 96/59 (71) 97 I/O 12/20/17 12/20/17 12/20/17 12/21/17 12/21/17 12/21/17 07:00 15:00 23:00 07:00 15:00 23:00 Intake Total 240 ml Output Total 450 ml 900 ml Balance -450 ml -660 ml Intake Oral 240 ml Output Urine Total 450 ml 900 ml # Voids 3 # Bowel Movements 0 1 Result Diagram: 12/21/17 0759 12/19/17 0420 Objective Remarks GENERAL: Well-nourished, well-developed male patient in no acute distress. SKIN: Warm and dry. No rashes or lesions present. EYES: No scleral icterus. No conjunctival injection or drainage. Pupils equal, round, reactive to light and accommodation. Extraocular movements intact. THROAT: Moist mucous membranes. No erythema or exudate in oropharynx. NECK: Supple, trachea midline. No lymphadenopathy. CARDIOVASCULAR: Normal S1 and S2. Regular rate and rhythm without murmurs, gallops, or rubs. No pain on palpation of epigastric area RESPIRATORY: Breath sounds clear to auscultation bilaterally. No accessory muscle use. No wheezes, rhonchi or rales. GASTROINTESTINAL: Abdomen soft, non-tender, nondistended. No masses or hernias. No hepatosplenomegaly. Bowel sounds present. MUSCULOSKELETAL: No cyanosis or edema. No nail changes. . NEURO: Cranial nerves II through XII grossly intact. Good muscle tone. PSYCH: Normal mood and affect. Good eye contact. Good insight and judgment. Normal speech. Urinary Catheter: Yes A/P Assessment and Plan 67 y/o M, hx of triple bypass and packemaker placement, DM, CKD, and HTN admitted with NSTEMI. Discharge Planning Pending further nuclear stress test results. Pt refused nuclear stress test yesterday but has agree to have test done today. Problem List: (1) NSTEMI (non-ST elevated myocardial infarction) ICD Codes: I21.4 - Non-ST elevation (NSTEMI) myocardial infarction Status: Acute Plan: On admission chest pain for last 30 minutes, hypotension at time of exam -Remove Nitropaste -Stat EKG -Troponins -We will call cardiology with any abnormality -Reinforced to patient that once his symptoms subside he needs to do the perfusion test Original admission; chest pain 3 hours, alleviated by aspirin and Nitropaste Positive troponin at 0.66, trending up overnight to 10.8 then 12.3 EKG: No STEMI Continue daily aspirin 325 Continue atorvastatin daily Continue home metoprolol as blood pressure tolerates will discontinue Telemetry Cardiology consulted, appreciate recommendation Nuclear stress test: showed no reversible perfusion defect seen, thus no ischemia. Pt does not need cath and can f/u as out-patient with his summer counselor , pt OK to be discharge today. per Dr. Gallagher's recommendations. echocardiogram: EF- 20-25%., mod dilated LV, dilated cardiomyopathy (2) Tachyarrhythmia ICD Codes: R00.0 - Tachycardia, unspecified Status: Resolved Plan: Resolved Heart rate of 139 on admission Patient has pacer, denies history of A. fib Heart rate brought down by Cardizem 15 mg IV 1 Follow-up vital signs Telemetry Continue metoprolol 25 mg twice daily (3) Elevated brain natriuretic peptide (BNP) level ICD Codes: R79.89 - Other specified abnormal findings of blood chemistry Status: Chronic Plan: Questionable history of CHF BNP 218 Continue home Bumex 2 mg p.o. twice daily Monitor for signs of fluid overload (4) Diabetes ICD Codes: E11.9 - Type 2 diabetes mellitus without complications Status: Chronic Plan: Glucose on admission 162 Hold home insulin Low-dose insulin sliding scale (5) Hypertension ICD Codes: I10 - Essential (primary) hypertension Status: Chronic Plan: Monitor closely Continue home lisinopril 5 mg daily Continue home metoprolol 25 mg twice daily (6) fen/ppx Status: Chronic Plan: Fluids: Encourage p.o. fluid Electrolytes: replete as needed Nutrition: may resume diabetic diet after nuclear stress test GI prophylaxis: Omeprazole daily DVT prophylaxis: SCDs, stop heparin drip, per cardiology recommendations Problem Qualifiers (1) Diabetes: Qualified Codes: E11.9 - Type 2 diabetes mellitus without complications; Z79.4 - FPC (current) use of insulin (2) Hypertension: Qualified Codes: I10 - Essential (primary) hypertension Richard Ivey MD, R1 Dec 21, 2017 14:41
--- NOTE | 2017-12-21 15:00 | PD.CARD.PN ---
Subjective Subjective Remarks No CP or SOB, nuc ST today showed fixed defects, no ischemia Objective Medications Current Medications Medications (Trade) Dose Ordered Sig/August Route Start Time Stop Time Status Last Admin (Heparin Inj) 5,000 units UNSCH PRN IV 12/19/17 03:00 (Heparin Inj) 2,500 units UNSCH PRN IV 12/19/17 03:00 Heparin Sodium/ Dextrose 250 ml @ 10 mls/hr TITRATE PRN IV 12/18/17 21:00 12/21/17 10:19 (Bumetanide) 2 mg BID PO 12/19/17 09:00 12/21/17 09:05 (Prinivil) 5 mg DAILY PO 12/19/17 09:00 12/21/17 09:04 (Lopressor) 25 mg BID PO 12/19/17 09:00 12/21/17 09:04 (NS Flush) 2 ml BID IV FLUSH 12/19/17 09:00 (NS Flush) 2 ml UNSCH PRN IV FLUSH 12/18/17 22:45 (Tylenol) 500 mg Q4H PRN PO 12/18/17 22:45 (Protonix) 40 mg DAILY PO 12/19/17 09:00 12/21/17 09:04 (Restoril) 15 mg HS PRN PO 12/18/17 21:00 12/19/17 22:47 (D50w (Vial) Inj) 50 ml UNSCH PRN IV PUSH 12/18/17 23:00 (Glucagon Inj) 1 mg UNSCH PRN OTHER 12/18/17 23:00 (NovoLOG SUPPLEMENTAL SCALE) 1 ACHS SLIDING SCALE SQ 12/19/17 08:00 (Aspirin Chew) 81 mg DAILY PO 12/20/17 09:00 12/21/17 09:05 (Lipitor) 80 mg HS PO 12/19/17 21:00 12/20/17 20:54 (Plavix) 75 mg DAILY PO 12/20/17 09:00 12/21/17 09:04 ([place] 7.5-325 Mg) 1 tab Q4H PRN PO 12/20/17 11:45 (Morphine Inj) 2 mg Q5M PRN IV PUSH 12/20/17 12:00 (Imdur) 30 mg DAILY@07 PO 12/21/17 07:00 12/21/17 07:17 Vital Signs / I&O Vital Signs Date Time Temp Pulse Resp B/P (MAP) Pulse Ox O2 Delivery O2 Flow Rate FiO2 12/21/17 13:18 97.8 60 18 103/57 (72) 98 12/21/17 09:02 75 112/60 (77) 12/21/17 08:00 98.9 60 18 107/56 (73) 98 12/21/17 08:00 Room Air 12/21/17 07:57 63 12/21/17 04:00 97.7 74 18 100/58 (72) 95 12/21/17 03:58 68 12/21/17 00:26 97.5 66 18 113/62 (79) 98 12/21/17 00:00 76 12/21/17 00:00 Room Air 12/20/17 20:00 98.4 80 16 136/61 (86) 98 12/20/17 20:00 Room Air 12/20/17 20:00 87 12/20/17 18:00 Nasal Cannula 2.00 12/20/17 16:00 74 12/20/17 16:00 97.4 69 20 96/59 (71) 97 I/O 12/20/17 12/20/17 12/20/17 12/21/17 12/21/17 12/21/17 06:59 14:59 22:59 06:59 14:59 22:59 Intake Total 240 ml Output Total 450 ml 900 ml Balance -450 ml -660 ml Intake Oral 240 ml Output Urine Total 450 ml 900 ml # Voids 3 # Bowel Movements 0 1 Physical Exam GENERAL: In NAD SKIN: Warm and dry. HEAD: Normocephalic. EYES: No scleral icterus. No injection or drainage. NECK: Supple, trachea midline. No JVD or lymphadenopathy. CARDIOVASCULAR: Regular rate and rhythm without murmurs, gallops, or rubs. RESPIRATORY: Breath sounds equal bilaterally. No accessory muscle use. GASTROINTESTINAL: Abdomen soft, non-tender, nondistended. MUSCULOSKELETAL: No cyanosis, or edema. Laboratory Laboratory Tests Test 12/20/17 18:48 12/21/17 07:59 Troponin I 9.25 NG/ML White Blood Count 7.3 TH/MM3 Red Blood Count 5.30 MIL/MM3 Hemoglobin 15.1 GM/DL Hematocrit 44.7 % Mean Corpuscular Volume 84.4 FL Mean Corpuscular Hemoglobin 28.4 PG Mean Corpuscular Hemoglobin Concent 33.7 % Red Cell Distribution Width 14.1 % Platelet Count 163 TH/MM3 Mean Platelet Volume 9.3 FL Activated Partial Thromboplast Time 44.1 SEC Imaging Last 24 hours Impressions Myocardial Perfusion Scan Nuc Med 12/21/17 0000 Signed Impressions: Service Date/Time: Thursday, December 21, 2017 11:46 - CONCLUSION: 1. Left ventricular dilation, global hypokinesis, and scattered pattern of decreased fixed defects throughout the left ventricular myocardium suggests cardiomyopathy. 2. No reversible perfusion defect seen. RISK CATEGORY: Intermediate (1-3%% Annual Mortality Rate) Declan Lentz MD Assessment and Plan Problem List: (1) NSTEMI (non-ST elevated myocardial infarction) ICD Codes: I21.4 - Non-ST elevation (NSTEMI) myocardial infarction Status: Acute (2) CAD (coronary artery disease) ICD Codes: I25.10 - Atherosclerotic heart disease of [place] coronary artery without angina pectoris (3) Hx of CABG ICD Codes: Z95.1 - Presence of aortocoronary bypass graft (4) Diabetes ICD Codes: E11.9 - Type 2 diabetes mellitus without complications Status: Chronic (5) Hypertension ICD Codes: I10 - Essential (primary) hypertension Status: Chronic (6) CKD (chronic kidney disease) ICD Codes: N18.9 - Chronic kidney disease, unspecified Status: Chronic Assessment and Plan Continue post PR care including Plavix, ASA, statin, beta angle. DC heparin. Nuc ST c/w ischemic CM, no ischemia. Continue aggressive risk factor modification. Continue conservative management. Increase activity, PT. 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 Problem Qualifiers (1) Diabetes: Qualified Codes: E11.9 - Type 2 diabetes mellitus without complications; Z79.4 - senior care (current) use of insulin (2) Hypertension: Qualified Codes: I10 - Essential (primary) hypertension Rafita Gallagher MD Dec 21, 2017 15:00
[2017-12-21] MEDS ORDERED: PLAV75TA29 PO (15:01)
--- NOTE | 2017-12-21 15:02 | HHI.DCPOC ---
Discharge Care Plan Diagnosis: (1) CKD (chronic kidney disease) (2) Hypertension (3) Diabetes (4) NSTEMI (non-ST elevated myocardial infarction) (5) CAD (coronary artery disease) Goals to Promote Your Health * To prevent worsening of your condition and complications * To maintain your health at the optimal level Directions to Meet Your Goals Take your medications as prescribed Follow your dietary instruction Follow activity as directed Keep your appointments as scheduled Take your immunizations and boosters as scheduled If your symptoms worsen call your PCP, if no PCP go to Urgent Care Center or Emergency Room Smoking is Dangerous to Your Health. Avoid second hand smoke Call the 24-hour hour crisis hotline for domestic abuse at Taras Adkins MD Dec 21, 2017 15:02
--- NOTE | 2017-12-21 17:10 | HHI.DS ---
Discharge Summary Admission Date Dec 18, 2017 at 21:40 Discharge Date: Dec 21, 2017 Admitting Diagnosis NSTEMI (1) NSTEMI (non-ST elevated myocardial infarction) Diagnosis: Principal Plan: On admission chest pain for last 30 minutes, hypotension at time of exam -Remove Nitropaste -Stat EKG -Troponins -We will call cardiology with any abnormality -Reinforced to patient that once his symptoms subside he needs to do the perfusion test Original admission; chest pain 3 hours, alleviated by aspirin and Nitropaste Positive troponin at 0.66, trending up overnight to 10.8 then 12.3 EKG: No STEMI Continue daily aspirin 325 Continue atorvastatin daily Continue home metoprolol as blood pressure tolerates will discontinue Telemetry Cardiology consulted, appreciate recommendation Nuclear stress test: showed no reversible perfusion defect seen, thus no ischemia. Pt does not need cath and can f/u as out-patient with his is/it project manager , pt OK to be discharge today. per Dr. Gallagher's recommendations. echocardiogram: EF- 20-25%., mod dilated LV, dilated cardiomyopathy ICD Codes: I21.4 - Non-ST elevation (NSTEMI) myocardial infarction Status: Acute (2) Tachyarrhythmia Diagnosis: Principal Plan: Resolved Heart rate of 139 on admission Patient has pacer, denies history of A. fib Heart rate brought down by Cardizem 15 mg IV 1 Follow-up vital signs Telemetry Continue metoprolol 25 mg twice daily ICD Codes: R00.0 - Tachycardia, unspecified Status: Resolved (3) Elevated brain natriuretic peptide (BNP) level Diagnosis: Secondary Plan: Questionable history of CHF BNP 218 Continue home Bumex 2 mg p.o. twice daily Monitor for signs of fluid overload ICD Codes: R79.89 - Other specified abnormal findings of blood chemistry Status: Chronic (4) Diabetes Diagnosis: Secondary Plan: Glucose on admission 162 Hold home insulin Low-dose insulin sliding scale ICD Codes: E11.9 - Type 2 diabetes mellitus without complications Status: Chronic (5) Hypertension Diagnosis: Secondary Plan: Monitor closely Continue home lisinopril 5 mg daily Continue home metoprolol 25 mg twice daily ICD Codes: I10 - Essential (primary) hypertension Status: Chronic (6) fen/ppx Diagnosis: Secondary Plan: Fluids: Encourage p.o. fluid Electrolytes: replete as needed Nutrition: may resume diabetic diet after nuclear stress test GI prophylaxis: Omeprazole daily DVT prophylaxis: SCDs, stop heparin drip, per cardiology recommendations Status: Chronic Consultants Cardiology Brief History 67 y/o M, hx of triple bypass and packemaker placement, DM, CKD, and HTN came in after episode of chest pain and saw that his HR was 126 and BP 150/105 at home. He also had some sweating at this time. The chest pain was over the left side of his chest and persisted for about 2 hours until he got medicine in the ED. He took his metoprolol and lisinopril at home which helped his HR and BP to come down, but he continue to have the chest pain. He denies any N/V during this time. He denies palpitations Pt denies any CP with activity recently. Right now he has no pain at all. He says he has chills in his feet. He had similar chest pain 5 years ago, but it was stronger. This led to his open heart surgery. He sees a is/it project manager, of [facility]. He saw him last 6 months ago, and there were no problems. No medications were changed at that time. CBC/BMP: 12/21/17 0759 12/19/17 0420 Significant Findings Laboratory Tests Test 12/18/17 19:45 12/19/17 03:42 12/19/17 04:20 12/19/17 08:01 Neutrophils (%) (Auto) 73.3 % (16.0-70.0) Monocytes (%) (Auto) 8.1 % (0.0-8.0) 8.9 % (0.0-8.0) Blood Urea Nitrogen 22 MG/DL (7-18) 20 MG/DL (7-18) Creatinine 1.31 MG/DL (0.60-1.30) Random Glucose 162 MG/DL (74-106) 145 MG/DL (74-106) Magnesium Level 2.7 MG/DL (1.5-2.5) 2.6 MG/DL (1.5-2.5) Sodium Level 133 MEQ/L (136-145) 134 MEQ/L (136-145) Chloride Level 97 MEQ/L (98-107) Estimat Glomerular Filtration Rate 55 ML/MIN (>89) 70 ML/MIN (>89) Creatine Kinase MB 3.7 NG/ML (0.5-3.6) Troponin I 0.66 NG/ML (0.02-0.05) 10.80 NG/ML (0.02-0.05) 12.30 NG/ML (0.02-0.05) B-Type Natriuretic Peptide 227 PG/ML (0-100) 218 PG/ML (0-100) Activated Partial Thromboplast Time 34.3 SEC (24.3-30.1) Potassium Level 3.4 MEQ/L (3.5-5.1) Hemoglobin A1c 6.7 % (4.3-6.0) Triglycerides Level 249 MG/DL (42-150) HDL Cholesterol 39.9 MG/DL (40.0-60.0) Test 12/19/17 13:00 12/19/17 19:35 12/20/17 03:34 12/20/17 12:37 Activated Partial Thromboplast Time 35.1 SEC (24.3-30.1) 36.9 SEC (24.3-30.1) 40.4 SEC (24.3-30.1) 42.2 SEC (24.3-30.1) Troponin I 9.84 NG/ML (0.02-0.05) Test 12/20/17 18:48 12/21/17 07:59 Troponin I 9.25 NG/ML (0.02-0.05) Activated Partial Thromboplast Time 44.1 SEC (24.3-30.1) Imaging Last Impressions Myocardial Perfusion Scan Nuc Med 12/21/17 0000 Signed Impressions: Service Date/Time: Thursday, December 21, 2017 11:46 - CONCLUSION: 1. Left ventricular dilation, global hypokinesis, and scattered pattern of decreased fixed defects throughout the left ventricular myocardium suggests cardiomyopathy. 2. No reversible perfusion defect seen. RISK CATEGORY: Intermediate (1-3%% Annual Mortality Rate) Declan Lentz MD Chest X-Ray [id number] Signed Impressions: Service Date/Time: Monday, December 18, 2017 19:56 - CONCLUSION: 1. Compensated cardiomegaly. 2. Minimal left perihilar atelectasis/scarring. Lungs are otherwise clear Skyler Wetzel MD CT Angiography [id number] Signed Impressions: Service Date/Time: Monday, December 18, 2017 21:53 - CONCLUSION: 1. Negative for pulmonary embolus. Severe coronary calcifications status post CABG. Cardiomegaly. Jorge A Colon MD PE at Discharge GENERAL: Well-nourished, well-developed male patient in no acute distress. SKIN: Warm and dry. No rashes or lesions present. EYES: No scleral icterus. No conjunctival injection or drainage. Pupils equal, round, reactive to light and accommodation. Extraocular movements intact. THROAT: Moist mucous membranes. No erythema or exudate in oropharynx. NECK: Supple, trachea midline. No lymphadenopathy. CARDIOVASCULAR: Normal S1 and S2. Regular rate and rhythm without murmurs, gallops, or rubs. No pain on palpation of epigastric area RESPIRATORY: Breath sounds clear to auscultation bilaterally. No accessory muscle use. No wheezes, rhonchi or rales. GASTROINTESTINAL: Abdomen soft, non-tender, nondistended. No masses or hernias. No hepatosplenomegaly. Bowel sounds present. MUSCULOSKELETAL: No cyanosis or edema. No nail changes. . NEURO: Cranial nerves II through XII grossly intact. Good muscle tone. PSYCH: Normal mood and affect. Good eye contact. Good insight and judgment. Normal speech. Hospital Course 67-year-old male with history of triple bypass, pacemaker placement, DM, CAD, hypertension, presented with chest pain. He was found to have a NSTEMI. Cardiology was consulted, who recommended echocardiogram, telemetry, and adenosine perfusion study. Recommended continue aggressive modification of cardiac risk factors. He was started on heparin drip. Patient remained stable. He initially refused his effusion scan, but then had a performed. This showed ventricular dilation and cardiomyopathy, but no reversible perfusion defect. Cardiology recommended continue post-ME care and discharge in stable condition with follow-up with is/it project manager with conservative management. Patient was discharged in stable condition, with no medications were Plavix, and continue his home meds of aspirin, statin, beta angle. Pt Condition on Discharge: Stable Discharge Disposition: Discharge Home Discharge Instructions DIET: Follow Instructions for: Heart Healthy Diet, Diabetic Diet Activities you can perform: Regular-No Restrictions Follow up Referrals: Cardiology - 1 Week Cardiology - 1 Week @ [facility] PCP Follow-up - 1 Week PCP Follow-up - 1 Week @ [facility] New Medications: Clopidogrel (Plavix) 75 Mg Tab 75 MG PO DAILY, #30 TAB Continued Medications: Acetaminophen (Tylenol) 325 Mg Tab 650 MG PO Q6H for 5 Days, TAB [address] (Aspirin Adult Low Strength) 81 Mg Tabdr 81 MG PO DAILY, TAB Atorvastatin (Lipitor) 40 Mg Tab 40 MG PO DAILY for Cholesterol Management, #30 TAB 0 Refills Bumetanide (Bumetanide) 2 Mg Tab 2 MG PO BID, TAB 0 Refills Dicyclomine (Bentyl) 10 Mg Cap 10 MG PO TID PRN for Bowel Management, #15 CAP 0 Refills Insulin Glargine Inj (Lantus Inj) 1,000 Unit/10 Ml Vial 10 UNITS SQ 2-3 TIMES A DAY for Blood Sugar Management, VIAL 0 Refills Lisinopril (Lisinopril) 5 Mg Tab 5 MG PO DAILY for Blood Pressure Management, #30 TAB 0 Refills Metoprolol Tartrate (Metoprolol Tartrate) 25 Mg Tab 25 MG PO BID, #60 TAB 0 Refills Ondansetron Odt (Zofran Odt) 4 Mg Tab 4 MG SL Q6HR PRN for Nausea/Vomiting, #7 TAB 0 Refills Taras Adkins MD Dec 21, 2017 17:10
--- NOTE | 2017-12-21 23:13 | EKG ---
Date Performed: 12/20/2017 Time Performed: 10:19:26 PTAGE: 67 years EKG: Ventricular pacing. Pacemaker rhythm - no further analysis Abnormal ECG NO PREVIOUS TRACING DOCTOR: Margot Dominguez Interpretating Date/Time 12/21/2017 23:01:55
== END 2017-12-21 17:32 | disposition home or self-care (01) | DRG 281 ==
LOC: NEPE 18:48 → NEDA 21:40 → N04B 22:36
PROVIDERS: ADMIT Family Medicine; ATTEND Family Medicine
DX: I21.4 Non-ST elevation (NSTEMI) myocardial infarction (principal); I13.0 Hypertensive heart and chronic kidney disease with heart failure and stage 1 through stage 4 chronic kidney disease, or unspecified chronic kidney disease; I95.9 Hypotension, unspecified; E11.22 Type 2 diabetes mellitus with diabetic chronic kidney disease; I42.0 Dilated cardiomyopathy; I50.9 Heart failure, unspecified; N18.9 Chronic kidney disease, unspecified; R00.0 Tachycardia, unspecified; I25.10 Atherosclerotic heart disease of native coronary artery without angina pectoris; F90.9 Attention-deficit hyperactivity disorder, unspecified type; E78.00 Pure hypercholesterolemia, unspecified; Z95.1 Presence of aortocoronary bypass graft; Z95.0 Presence of cardiac pacemaker; Z79.4 Long term (current) use of insulin; Z95.5 Presence of coronary angioplasty implant and graft
CPT/HCPCS: 71045; 71275; 78452; 80048; 80053; 80061; 82550; 82552; 82948; 83036; 83690; 83735; 83880; 84484; 85025; 85027; 85610; 85730; 93005; 93017; 93306; 96374; 96375; A9502; G0378; J1644; J2785; Q9967